=== PATIENT | male | born 1935 | race Caucasian/White ===

== ENCOUNTER → 2017-10-15 | Outpatient (CLI) | payer MEDICARE, OTHER ==
[2017-10-15 12:15] LABS: ABG BASE EXCESS 1.7 MMOL/L (-2.5-2.5); ABG OXYGEN SATURATION 91 % (94-100); ABG PCO2 40 MMHG (35-45); ABG PH 7.43 (7.37-7.43); ABG PO2 56 MMHG (79-93); ABG TCO2 27.2 MMOL/L (21.0-31.0)
[2017-10-15 12:17] LABS: ALLENS TEST POSITIVE; INSPIRED O2 3 L; PATIENT TEMP 96.6; VENTILATOR NO
== END ==
LOC: LAB 11:27
PROVIDERS: ATTEND Nurse Practitioner Family
DX: J44.9 Chronic obstructive pulmonary disease, unspecified (principal)
CPT/HCPCS: 36600; 82805

== ENCOUNTER 2017-11-12 11:16 | Inpatient (IN) | payer MEDICARE, OTHER ==
[2017-11-12] VITALS (10 sets, daily range): BP systolic 119–153; BP diastolic 65–88
[~2017-11-12] VITALS: Ht 172.7 cm; Wt 108.9 kg
[2017-11-12] MEDS ORDERED: ASPIRIN 81 MG CHEW (CHILDREN'S ASA) PO ONE (11:30)
[2017-11-12 11:45] LABS: BASOPHILS % (AUTO) 1 % (0-10); EOSINOPHILS # (AUTO) 0.3 10^3/uL (0.0-0.3); EOSINOPHILS % (AUTO) 3 % (0-10); HEMATOCRIT 50 % (40-54); HEMOGLOBIN 16.7 G/DL (13.3-17.7); LYMPHOCYTES # (AUTO) 2.5 X 10^3 (1.0-4.0); LYMPHOCYTES % (AUTO) 28 % (12-44); MEAN CORPUSCULAR HEMOGLOBIN 28 PG (25-34); MEAN CORPUSCULAR HGB CONC 33 G/DL (32-36); MEAN CORPUSCULAR VOLUME 85 FL (80-99); MEAN PLATELET VOLUME 9.1 FL (7.4-10.4); MONOCYTES # (AUTO) 0.6 X 10^3 (0.0-1.0); MONOCYTES % (AUTO) 7 % (0-12); NEUTROPHILS # (AUTO) 5.3 X 10^3 (1.8-7.8); NEUTROPHILS % (AUTO) 61 % (42-75); PLATELET COUNT 215 10^3/uL (130-400); RED BLOOD COUNT 5.92 10^6/uL (4.35-5.85); RED CELL DISTRIBUTION WIDTH 15.8 % (10.0-14.5); WHITE BLOOD COUNT 8.7 10^3/uL (4.3-11.0)
--- NOTE | 2017-11-12 11:56 | ED Chest Pain ---
General Chief Complaint: Chest Pain Stated Complaint: CP Source: patient Exam Limitations: no limitations History of Present Illness Date Seen by Provider: Nov 12, 2017 Time Seen by Provider: 11:20 Initial Comments Here with report of central chest pressure that radiates to the left shoulder and left neck. Onset about 830 this morning and has persisted. He was seen at Dr[facility] and mentioned the chest pain. 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 He is on oxygen via nasal cannula at 3 L and this is his usual dose. More short of breath currently. Denies nausea or vomiting. Sweating. Was seen at [facility] yesterday and had monitoring done in the ER for chest pain. This is become more persistent. Does have history of heart catheter at outside facility last year that showed some sort of blockage. He is unsure what that is. Reports it is on Plavix and aspirin. Has not had his dose of aspirin today. Timing/Duration: 1-3 hours Severity/Quality: moderate, pressure Location: central Radiation: neck, shoulders Activities at Onset: none Prior CP/Workup: cardiac cath, echocardiography Modifying Factors: worse with exercise; improves with oxygen, improves with rest ASA po MANAGER BUILDING: No NTG SL MANAGER BUILDING: No Associated Symptoms: No abdominal pain, No back pain, No diaphoresis, No dizziness; fatigue; No fever/chills, No nausea/vomiting; shortness of breath, weakness Allergies and Home Medications Allergies Coded Allergies: No Known Drug Allergies (Unverified , 10/23/17) Patient Home Medication List Home Medication List Reviewed: Yes Review of Systems Constitutional: see HPI EENTM: No Symptoms Reported Respiratory: No Symptoms Reported; Denies Cough; Shortness of Air, SOA With Exertion Cardiovascular: Chest Pain; Denies Edema, Denies Irregular Heart Rate Gastrointestinal: Denies Abdominal Pain, Denies Nausea, Denies Vomiting Genitourinary: No Symptoms Reported Musculoskeletal: no symptoms reported Skin: no symptoms reported Psychiatric/Neurological: No Symptoms Reported Endocrine: No Symptoms Reported All Other Systems Reviewed Negative Unless Noted: Yes Past Qcepgps-Njhkxl-Bbpsjs Hx Past Med/Social Hx: Reviewed Nursing Past Med/Soc Hx Patient Social History Alcohol Use: Denies Use Recreational Drug Use: No Smoking Status: Former Smoker Past Medical History Surgeries: Yes Appendectomy, Cardiac, CABG, Gallbladder, Vascular Surgery Respiratory: Yes Chronic Bronchitis Cardiac: Yes Atrial Fibrillation, High Cholesterol, Hypertension Neurological: No Gastrointestinal: Yes Irritable Bowel Musculoskeletal: Yes Gout Endocrine: Yes Hypothyroidsim Psychosocial: Yes Anxiety Family Medical History Reviewed Nursing Family Hx No Pertinent Family Hx Physical Exam Vital Signs Vital Signs - First Documented 11/12/17 11:16 Temp 98.1 Pulse 71 Resp 12 B/P (MAP) 7/109 (75) Pulse Ox 98 O2 Delivery Room Air O2 Flow Rate 3.0 Capillary Refill : Height, Weight, BMI Height: '" Weight: lbs. oz. kg; BMI Method: General Appearance: No Apparent Distress, WD/WN HEENT: PERRL/EOMI, Pharynx Normal Neck: Full Range of Motion, Non Tender Respiratory: Lungs Clear, Decreased Breath Sounds, Wheezing Cardiovascular: Regular Rate, Rhythm, No Murmur Gastrointestinal: Non Tender, Soft Extremity: Normal Inspection, Normal Range of Motion Neurologic/Psychiatric: Alert, Oriented x3 Skin: Normal Color, Warm/Dry Progress/Results/Core Measures Results/Orders Lab Results Laboratory Tests Test 11/12/17 11:28 Range/Units White Blood Count 8.7 4.3-11.0 10^3/uL Red Blood Count 5.92 H 4.35-5.85 10^6/uL Hemoglobin 16.7 13.3-17.7 G/DL Hematocrit 50 40-54 % Mean Corpuscular Volume 85 80-99 FL Mean Corpuscular Hemoglobin 28 25-34 PG Mean Corpuscular Hemoglobin Concent 33 32-36 G/DL Red Cell Distribution Width 15.8 H 10.0-14.5 % Platelet Count 215 130-400 10^3/uL Mean Platelet Volume 9.1 7.4-10.4 FL Neutrophils (%) (Auto) 61 42-75 % Lymphocytes (%) (Auto) 28 12-44 % Monocytes (%) (Auto) 7 0-12 % Eosinophils (%) (Auto) 3 0-10 % Basophils (%) (Auto) 1 0-10 % Neutrophils # (Auto) 5.3 1.8-7.8 X 10^3 Lymphocytes # (Auto) 2.5 1.0-4.0 X 10^3 Monocytes # (Auto) 0.6 0.0-1.0 X 10^3 Eosinophils # (Auto) 0.3 0.0-0.3 10^3/uL Basophils # (Auto) 0.0 0.0-0.1 10^3/uL Prothrombin Time 14.0 12.2-14.7 SEC INR Comment 1.1 0.8-1.4 Activated Partial Thromboplast Time 33 24-35 SEC Sodium Level 142 135-145 MMOL/L Potassium Level 4.9 3.6-5.0 MMOL/L Chloride Level 106 98-107 MMOL/L Carbon Dioxide Level 27 21-32 MMOL/L Anion Gap 9 5-14 MMOL/L Blood Urea Nitrogen 26 H 7-18 MG/DL Creatinine 1.60 H 0.60-1.30 MG/DL Estimat Glomerular Filtration Rate 42 BUN/Creatinine Ratio 16 Glucose Level 95 70-105 MG/DL Calcium Level 9.8 8.5-10.1 MG/DL Magnesium Level 2.9 H 1.8-2.4 MG/DL Total Bilirubin 0.7 0.1-1.0 MG/DL Aspartate Amino Transf (AST/SGOT) 35 H 5-34 U/L Alanine Aminotransferase (ALT/SGPT) 16 0-55 U/L Alkaline Phosphatase 69 40-136 U/L Myoglobin 30.7 10.0-92.0 NG/ML Troponin I < 0.30 <0.30 NG/ML Total Protein 8.0 6.4-8.2 GM/DL Albumin 4.0 3.2-4.5 GM/DL My Orders Orders - RUBENS MAYFIELD MD Cbc With Automated Diff (11/12/17 11:18) Magnesium (11/12/17 11:18) Chest 1 View, Ap/Pa Only (11/12/17 11:18) Ekg Tracing (11/12/17 11:18) Cardiac Profile 1 (11/12/17 11:18) Comprehensive Metabolic Panel (11/12/17 11:18) Myoglobin Serum (11/12/17 11:18) Protime With Inr (11/12/17 11:18) Partial Thromboplastin Time (11/12/17 11:18) O2 (11/12/17 11:18) Monitor-Rhythm Ecg Trace Only (11/12/17 11:18) Lipid Panel (11/13/17 06:00) Aspirin Chewable Tablet (Baby Aspirin Ch (11/12/17 11:30) Saline Lock/Iv-Start (11/12/17 11:18) Ct Chest Wo (11/12/17 12:15) Albuterol/Ipra Inhalation Soln (Duoneb I (11/12/17 12:15) Svn Small Volume Nebulizer (11/12/17 12:15) Nitroglycerin 0.4 Mg Btl 25's (Nitrostat (11/12/17 13:15) Nitroglycerin 0.4 Mg Btl 25's (Nitrostat (11/12/17 13:15) Morphine Injection (Morphine Injection (11/12/17 13:21) Medications Given in ED Current Medications Medications Dose Ordered Sig/Barron Route Start Time Stop Time Status Last Admin Dose Admin Albuterol/ Ipratropium 3 ml ONCE ONCE INH 11/12/17 12:15 11/12/17 12:16 DC 11/12/17 12:52 3 ML Aspirin 324 mg ONCE ONCE PO 11/12/17 11:30 11/12/17 11:31 DC 11/12/17 11:40 324 MG Nitroglycerin 0.4 mg UD PRN SL 11/12/17 13:15 11/12/17 13:17 0.4 MG Vital Signs/I&O 11/12/17 11/12/17 11/12/17 11/12/17 11:16 11:16 11:16 12:52 Temp 98.1 Pulse 71 Resp 12 B/P (MAP) 7/109 (75) Pulse Ox 98 96 O2 Delivery Room Air Nasal Cannula Nasal Cannula Nasal Cannula O2 Flow Rate 3.0 3.00 4.00 Progress Progress Note : Progress Note Seen and evaluated. IV, labs, EKG and chest x-ray ordered. ASA 324 mg by mouth ordered. Monitor patient. Patient still with some chest pain. 1312: I discussed the case with Dr. GÓMEZ and he accepts patient for admission, observation status. 1315: I discussed the case with Dr. Reza and he accepts patient in consult. Morphine 2 mg IV ordered after nitroglycerin. Patient and family agree with plan. Initial ECG Impression Date: Nov 12, 2017 Initial ECG Impression Time: 11:23 Initial ECG Rate: 76 Initial ECG Rhythm: Normal Sinus Initial ECG Comparisson: No Previous ECG Available Comment Sinus rhythm with first degree AV block. No evidence of ST elevation PA. No previous available for comparison. Normal axis. Interpreted by me. Diagnostic Imaging Diagonstic Imaging: CT Plain Films/CT/US/NM/MRI: chest [facility] [place], [place] NAME: MAL ALFONSO [facility] REC#: [id number] PT STATUS: REG ER : 1935 PHYSICIAN: RUBENS MAYFIELD MD ADMIT DATE: 11/12/17/ER Draft Date of Exam:11/12/17 CT CHEST WO PROCEDURE: CT chest without contrast. TECHNIQUE: Multiple contiguous axial images were obtained through the chest without the use of intravenous contrast. INDICATION: Chest pain. COMPARISON: No prior CT chest is available for comparison. Comparison is made with chest radiograph from 11/12/2017. FINDINGS: Postop changes of median sternotomy and CABG are noted. No axillary lymphadenopathy is detected. No definite hilar or mediastinal lymphadenopathy is seen. There are coronary arterial calcifications present. No pericardial or pleural fluid is detected. Left hemidiaphragm is elevated. There is resultant atelectasis in the left lower lobe. The right lung appears clear. Central airways are patent. There are centrilobular emphysematous changes noted in both lungs. Imaging through the upper abdomen does show minimal pneumobilia in the left lobe of the liver as well as centrally, which could be owing to an incompetent sphincter. No other abnormality is seen. IMPRESSION: 1. Elevated left hemidiaphragm with left basilar atelectasis. 2. Centrilobular emphysematous changes. No other significant abnormality in the chest is seen. 3. Pneumobilia, perhaps owing to incompetent sphincter. Dictated on workstation # [id number] Dict: 11/12/17 1243 Trans: 11/12/17 1252 [id number] Interpreted by: LEILANI MARTELL MD Electronically signed by: Diagonstic Imaging: Xray Plain Films/CT/US/NM/MRI: chest [facility] [place] [place] NAME: MAL ALFONSO [facility] REC#: [id number] PT STATUS: REG ER : 1935 PHYSICIAN: RUBENS MAYFIELD MD ADMIT DATE: 11/12/17/ER Draft Date of Exam:11/12/17 CHEST 1 VIEW, AP/PA ONLY INDICATION: Chest pains. COMPARISON: None FINDINGS: Upright portable view of the chest is obtained. Heart size appears to be enlarged. There is no central venous congestion. There is no pneumothorax. There is however, opacification of the lower half of the left hemithorax likely due to combination of pleural fluid and/or airspace disease. The right lung appears fairly clear. There are postoperative changes in the mediastinum and left hilum. IMPRESSION: There is opacification of the lower half of the left hemithorax likely due to combination of pleural effusion and airspace disease. Underlying etiology is uncertain and could be related to pneumonia, although neoplastic process is not excluded. Dictated on workstation # [id number] Dict: 11/12/17 1203 Trans: 11/12/17 1207 [id number] Interpreted by: BENJI WELCH DO Electronically signed by: Departure Communication (Admissions) Time/Spoke to Admitting Phy: 13:12 Time/Spoke to Consulting Phy: 13:15 Impression Primary Impression: Chest pain Qualified Codes: R07.9 - Chest pain, unspecified Disposition: ADMITTED INPATIENT Condition: Stable Admissions Decision to Admit Reason: Admit from ER (General) Decision to Admit/Date: Nov 12, 2017 Time/Decision to Admit Time: 13:12 Departure-Patient Inst. Referrals: NO,LOCAL PHYSICIAN (PCP/Family) Primary Care Physician RUBENS MAYFIELD MD Nov 12, 2017 11:56
[2017-11-12 11:58] LABS: INR 1.1 (0.8-1.4)
[2017-11-12 12:05] LABS: ALANINE AMINOTRANSFERASE 16 U/L (0-55); ALKALINE PHOSPHATASE 69 U/L (40-136); BILIRUBIN,TOTAL 0.7 MG/DL (0.1-1.0); BUN/CREATININE RATIO 16; CALCIUM 9.8 MG/DL (8.5-10.1); CARBON DIOXIDE 27 MMOL/L (21-32); CHLORIDE 106 MMOL/L (98-107); GFR ESTIMATED 42; GLUCOSE 95 MG/DL (70-105); MAGNESIUM 2.9 MG/DL (1.8-2.4); POTASSIUM 4.9 MMOL/L (3.6-5.0); SODIUM 142 MMOL/L (135-145)
--- NOTE | 2017-11-12 12:08 | Diagnostic Imaging Report ---
INDICATION: Chest pains. COMPARISON: None FINDINGS: Upright portable view of the chest is obtained. Heart size appears to be enlarged. There is no central venous congestion. There is no pneumothorax. There is however, opacification of the lower half of the left hemithorax likely due to combination of pleural fluid and/or airspace disease. The right lung appears fairly clear. There are postoperative changes in the mediastinum and left hilum. IMPRESSION: There is opacification of the lower half of the left hemithorax likely due to combination of pleural effusion and airspace disease. Underlying etiology is uncertain and could be related to pneumonia, although neoplastic process is not excluded. Dictated by: Dictated on workstation # [id number]
[2017-11-12 12:11] LABS: MYOGLOBIN SERUM 30.7 NG/ML (10.0-92.0)
[2017-11-12] MEDS ORDERED: RT-ALBUTEROL/IPRATROPIUM 3 ML (DUONEB) VIAL INH ONE (12:15)
--- NOTE | 2017-11-12 12:52 | Diagnostic Imaging Report ---
PROCEDURE: CT chest without contrast. TECHNIQUE: Multiple contiguous axial images were obtained through the chest without the use of intravenous contrast. INDICATION: Chest pain. COMPARISON: No prior CT chest is available for comparison. Comparison is made with chest radiograph from 11/12/2017. FINDINGS: Postop changes of median sternotomy and CABG are noted. No axillary lymphadenopathy is detected. No definite hilar or mediastinal lymphadenopathy is seen. There are coronary arterial calcifications present. No pericardial or pleural fluid is detected. Left hemidiaphragm is elevated. There is resultant atelectasis in the left lower lobe. The right lung appears clear. Central airways are patent. There are centrilobular emphysematous changes noted in both lungs. Imaging through the upper abdomen does show minimal pneumobilia in the left lobe of the liver as well as centrally, which could be owing to an incompetent sphincter. No other abnormality is seen. IMPRESSION: 1. Elevated left hemidiaphragm with left basilar atelectasis. 2. Centrilobular emphysematous changes. No other significant abnormality in the chest is seen. 3. Pneumobilia, perhaps owing to incompetent sphincter. Dictated by: Dictated on workstation # [id number]
[2017-11-12] MEDS ORDERED: NITROGLYCERIN 0.4 MG SL TABS BTL 25'S SL ONE (13:15)
[2017-11-12] MEDS ORDERED: LIDOCAINE JELLY 2% (XYLOCAINE) 30 ML TUBE TOP ONE (13:16)
[2017-11-12] MEDS ORDERED: LIDOCAINE 4% INJ (XYLOCAINE) 5ML AMP INJ ONE (13:16)
[2017-11-12] MEDS ORDERED: LIDOCAINE PF 1% 2 ML AMP INJ ONE (13:16)
[2017-11-12] MEDS: NITROGLYCERIN 0.4 MG SL TABS BTL 25'S SL PRN ×2 (13:17→13:45)
[2017-11-12] MEDS ORDERED: morphine INJ 10 MG/ML 1ML (SYR OR VIAL) IVP STA (13:21)
[2017-11-12] MEDS ORDERED: ISM60TCR PO (13:52)
[2017-11-12] MEDS ORDERED: FURO40TA4 PO (13:52)
[2017-11-12] MEDS ORDERED: POTA-51 PO ×2 (13:52)
[2017-11-12] MEDS ORDERED: MULT-35 PO (13:52)
[2017-11-12] MEDS ORDERED: FLUT1BLS3 IH (13:52)
[2017-11-12] MEDS ORDERED: LEVO100T7 PO (13:52)
[2017-11-12] MEDS ORDERED: NITR0.4T39 SL (13:52)
[2017-11-12] MEDS ORDERED: PANT40TA2 PO (13:52)
[2017-11-12] MEDS ORDERED: ALPR0.5T7 PO (13:52)
[2017-11-12] MEDS ORDERED: CITA40TA19 PO (13:52)
[2017-11-12] MEDS ORDERED: CLOP75TA69 PO (13:52)
[2017-11-12] MEDS ORDERED: OMG1KC PO (13:52)
[2017-11-12] MEDS ORDERED: ATOR40TA70 PO (13:52)
[2017-11-12] MEDS ORDERED: ALLO300T2 PO (13:52)
[2017-11-12] MEDS ORDERED: UMEC62.5 IH (14:10)
[2017-11-12] MEDS ORDERED: RT-ALBUINH IH (14:10)
--- NOTE | 2017-11-12 14:24 | Consultation-Cardiology ---
HPI-Cardiology Cardiology Consultation: Date of Consultation 11/12/17 Time Seen by Provider: 14:40 Date of Admission 11-12-17 Attending Physician Jassi Marion MD Admitting Physician No,Local Physician Consulting Physician Maicol Reza MD HPI: Chief Complaint: Chest pain Mr. Alfonso is an 82 year old male admitted to room 408 from the ED. His primary resident care coordinator is Dr. Mccollum at [facility]. He reports left sided chest pain which radiates up his chest to his right shoulder and neck. He states it is constant. He states he took nitro sublingual at home yesterday and it did not provide any relief. He states he went to the ED in [place], [place] yesterday and was evaluated. He reports they sent him home and found no cardiac cause. He states he was seen in Dr. Harris's clinic earlier today for a routine appt. He reported his chest pain to them and they directed him to the ED. He denies any aggravating or alleviating symptoms. He states he did receive "a pain shot" in the ED and that has provided some relief, but the discomfort is still present. It does not change in respect to movement or deep breathing. He does report he has had some increasing SOB over the last few weeks. He is oxygen dependant. He denies any LE edema. He reports chronic lightheadedness which is unchanged. He denies any syncope or near syncope. Review of Systems-Cardiology Review of Systems Constitutional: No chills, No fever; lightheadedness (chronic) Eyes: No vision change Ears/Nose/Throat: No epistaxis, No recent hearing loss Respiratory: As described under HPI Cardiovascular: As described under HPI Gastrointestinal: No constipation; diarrhea (chronic); No nausea, No vomiting Genitourinary: No dysuria, No hematuria Musculoskeletal: As describe under HPI Skin: No rash, No ulcerations Psychiatric/Neurological: No seizure, No focal weakness, No syncope Hematologic: No bleeding abnormalities All Other Systems Reviewed Negative Unless Noted: Yes VFT-Ktouni-Ypsdfl Hx Patient Social History Alcohol Use: Denies Use Recreational Drug Use: No Smoking Status: Former Smoker Recent Foreign Travel: No Recent Infectious Disease Expo: No Hospitalization with Isolation: Denies Past Medical History PMH As described under Assessment. Family Medical History Family Medical History: He reports his mother had CAD and AAA. He reports he has sisters x2 which have both had AAA. He reports a brother who had lung cancer. Allergies and Home Medications Allergies Coded Allergies: No Known Drug Allergies (Unverified , 10/23/17) Home Medications Albuterol Sulfate 1 Puff Puff, 2 PUFF IH QID PRN for SHORTNESS OF BREATH, ( Reported) 1 PUFF = 90 MCG Allopurinol 300 Mg Tablet, 300 MG PO DAILY, (Reported) Alprazolam 0.5 Mg Tablet, 0.5 MG PO TID, (Reported) Atorvastatin Calcium 40 Mg Tablet, 40 MG PO HS, (Reported) Citalopram Hydrobromide 40 Mg Tablet, 40 MG PO DAILY, (Reported) Clopidogrel Bisulfate 75 Mg Tablet, 75 MG PO DAILY, (Reported) Furosemide 20 Mg Tablet, 40 MG PO DAILY, (Reported) TAKES 2 (20MG) TABLETS Isosorbide Mononitrate 60 Mg Tab, 60 MG PO DAILY, (Reported) Levothyroxine Sodium 100 Mcg Tablet, 100 MCG PO DAILY, (Reported) Multivitamin 1 Each Tablet, 1 TAB PO DAILY, (Reported) Nitroglycerin 0.4 Mg Tab.subl, 0.4 MG SL UD PRN for CHEST PAIN, (Reported) [place] 3 Polyunsat Fatty Acids 1,000 Mg Cap, 2,000 MG PO DAILY, (Reported) TAKES 2 (1000MG) CAPSULES Pantoprazole Sodium 40 Mg Tablet.dr, 40 MG PO DAILY, (Reported) Potassium Chloride 20 Meq Tablet.er, 40 MEQ PO DAILY, (Reported) TAKES 2 (20MEQ) TABLETS Potassium Chloride 20 Meq Tablet.er, 20 MEQ PO 1200, (Reported) Umeclidinium [place] 62.5 Mcg Blst.w.dev, 1 PUFF IH DAILY, (Reported) Patient Home Medication List Home Medication List Reviewed: Yes Physical Exam-Cardiology Physical Exam Vital Signs/I&O 11/13/17 11/13/17 11/13/17 11/13/17 00:36 01:00 02:05 04:00 Temp 96.3 96.4 Pulse 63 62 70 Resp 20 16 B/P (MAP) 129/69 (89) 139/75 (96) Pulse Ox 93 94 92 O2 Delivery Nasal Cannula Nasal Cannula Nasal Cannula O2 Flow Rate 3.00 3.00 3.00 11/13/17 11/13/17 11/13/17 11/13/17 05:57 06:02 06:05 06:18 Pulse 74 76 79 73 Resp 26 24 20 20 B/P (MAP) 172/92 (118) 169/93 (118) 164/92 (116) 140/84 (102) Pulse Ox 95 95 94 94 O2 Delivery Nasal Cannula Nasal Cannula Nasal Cannula Nasal Cannula O2 Flow Rate 3.00 3.00 3.00 3.00 11/13/17 11/13/17 11/13/17 11/13/17 06:20 06:41 07:00 08:36 Temp 97.6 Pulse 72 73 79 Resp 20 20 B/P (MAP) 144/86 (105) 129/71 (90) Pulse Ox 94 93 100 O2 Delivery Nasal Cannula Nasal Cannula Nasal Cannula O2 Flow Rate 3.00 3.50 3.00 11/13/17 00:00 Intake Total 780 ml Balance 780 ml Capillary Refill : Less Than 3 Seconds Constitutional: AAO x 3, well-developed, well-nourished HEENT: PERRL, hearing is well preserved, oral hygience is good Neck: No carotid bruit; carotid pulses are 2 + bilaterally Respiratory: No accessory muscle use, No respiratory distress; other ( prolonged exp phase; diminished throughout) Cardiovascular: regular rate-rhythm; No JVD; S1 and S2, systolic murmur Gastrointestinal: No tender; soft, round, audible bowel sounds Rectal: deferred Extremities: no lower extremity edema bilateral Neurologic/Psychiatric: grossly intact, power is 5/5 both on sides Skin: No rash, No ulcerations Data Review Labs Laboratory Tests 11/12/17 11:28: White Blood Count 8.7, Red Blood Count 5.92H, Hemoglobin 16.7, Hematocrit 50, Mean Corpuscular Volume 85, Mean Corpuscular Hemoglobin 28, Mean Corpuscular Hemoglobin Concent 33, Red Cell Distribution Width 15.8H, Platelet Count 215, Mean Platelet Volume 9.1, Neutrophils (%) (Auto) 61, Lymphocytes (%) (Auto) 28, Monocytes (%) (Auto) 7, Eosinophils (%) (Auto) 3, Basophils (%) (Auto) 1, Neutrophils # (Auto) 5.3, Lymphocytes # (Auto) 2.5, Monocytes # (Auto) 0.6, Eosinophils # (Auto) 0.3, Basophils # (Auto) 0.0, Prothrombin Time 14.0, INR Comment 1.1, Activated Partial Thromboplast Time 33, Sodium Level 142, Potassium Level 4.9, Chloride Level 106, Carbon Dioxide Level 27, Anion Gap 9, Blood Urea Nitrogen 26H, Creatinine 1.60H, Estimat Glomerular Filtration Rate 42 , BUN/Creatinine Ratio 16, Glucose Level 95, Calcium Level 9.8, Magnesium Level 2.9H, Total Bilirubin 0.7, Aspartate Amino Transf (AST/SGOT) 35H, Alanine Aminotransferase (ALT/SGPT) 16, Alkaline Phosphatase 69, Myoglobin 30.7, Troponin I < 0.30, Total Protein 8.0, Albumin 4.0 11/12/17 17:30: Troponin I < 0.30 11/13/17 05:40: White Blood Count 7.0, Red Blood Count 5.24, Hemoglobin 14.9, Hematocrit 45, Mean Corpuscular Volume 86, Mean Corpuscular Hemoglobin 28, Mean Corpuscular Hemoglobin Concent 33, Red Cell Distribution Width 15.4H, Platelet Count 168, Mean Platelet Volume 9.3, Neutrophils (%) (Auto) 65, Lymphocytes (%) (Auto) 24, Monocytes (%) (Auto) 8, Eosinophils (%) (Auto) 3, Basophils (%) (Auto) 0, Neutrophils # (Auto) 4.6, Lymphocytes # (Auto) 1.7, Monocytes # (Auto) 0.5, Eosinophils # (Auto) 0.2, Basophils # (Auto) 0.0, Sodium Level 143, Potassium Level 3.9, Chloride Level 107, Carbon Dioxide Level 29, Anion Gap 7, Blood Urea Nitrogen 27H, Creatinine 1.33H, Estimat Glomerular Filtration Rate 52, BUN/ Creatinine Ratio 20, Glucose Level 94, Calcium Level 9.0, Total Bilirubin 0.7, Aspartate Amino Transf (AST/SGOT) 19, Alanine Aminotransferase (ALT/SGPT) 11, Alkaline Phosphatase 62, Total Protein 6.3L, Albumin 3.4, Triglycerides Level 169H, Cholesterol Level 154, LDL Cholesterol Direct 109, VLDL Cholesterol 34, HDL Cholesterol 29L 11/13/17 06:47: Troponin I < 0.30 Radiology NAME: MAL ALFONSO [facility] REC#: [id number] PT STATUS: REG ER : 1935 PHYSICIAN: RUBENS MAYFIELD MD ADMIT DATE: 11/12/17/ER Draft Date of Exam:11/12/17 CT CHEST WO PROCEDURE: CT chest without contrast. TECHNIQUE: Multiple contiguous axial images were obtained through the chest without the use of intravenous contrast. INDICATION: Chest pain. COMPARISON: No prior CT chest is available for comparison. Comparison is made with chest radiograph from 11/12/2017. FINDINGS: Postop changes of median sternotomy and CABG are noted. No axillary lymphadenopathy is detected. No definite hilar or mediastinal lymphadenopathy is seen. There are coronary arterial calcifications present. No pericardial or pleural fluid is detected. Left hemidiaphragm is elevated. There is resultant atelectasis in the left lower lobe. The right lung appears clear. Central airways are patent. There are centrilobular emphysematous changes noted in both lungs. Imaging through the upper abdomen does show minimal pneumobilia in the left lobe of the liver as well as centrally, which could be owing to an incompetent sphincter. No other abnormality is seen. IMPRESSION: 1. Elevated left hemidiaphragm with left basilar atelectasis. 2. Centrilobular emphysematous changes. No other significant abnormality in the chest is seen. 3. Pneumobilia, perhaps owing to incompetent sphincter. Dictated on workstation # [id number] Dict: 11/12/17 1243 Trans: 11/12/17 1252 [id number] Interpreted by: LEILANI MARTELL MD Electronically signed by: NAME: MAL ALFONSO [facility] REC#: [id number] PT STATUS: REG ER : 1935 PHYSICIAN: RUBENS MAYFIELD MD ADMIT DATE: 11/12/17/ER Draft Date of Exam:11/12/17 CHEST 1 VIEW, AP/PA ONLY INDICATION: Chest pains. COMPARISON: None FINDINGS: Upright portable view of the chest is obtained. Heart size appears to be enlarged. There is no central venous congestion. There is no pneumothorax. There is however, opacification of the lower half of the left hemithorax likely due to combination of pleural fluid and/or airspace disease. The right lung appears fairly clear. There are postoperative changes in the mediastinum and left hilum. IMPRESSION: There is opacification of the lower half of the left hemithorax likely due to combination of pleural effusion and airspace disease. Underlying etiology is uncertain and could be related to pneumonia, although neoplastic process is not excluded. Dictated on workstation # [id number] Dict: 11/12/17 1203 Trans: 11/12/17 1207 [id number] Interpreted by: BENJI WELCH DO Electronically signed by: ECG Impression ECG Initial ECG Rhythm: Normal Sinus A/P-Cardiology Assessment/Admission Diagnosis Chest pain of undetermined etiology - no evidence of ACS thus far CAD - h/o CABG x 3 [place] [address] Salazar at [facility] in [place], [place]. Stents x 4 since CABG, most recent stenting [place] [address] Mccollum. Most recent cardiac cath in Feb 2017 at [facility] with no intervention. AAA repair with stenting in 1999 and "CABG graft repair" by Dr. Browning at [facility] H/O ICM - most recent echo at [facility] approx [address] Mccollum Reports h/o a-fib in the past for which he reports he was on warfarin tx in the past, but reports it was stopped for reasons unknown HTN HLP - statin tx Hypothyroidism - replacement tx GERD COPD - following with Dr. Harris of pulmonary services JEFF - intolerant to CPAP tx Oxygen dependant d/t hypoxemia - followed by Dr. Harris H/O tobaccoism - quit in 1980 Diverticulitis with chronic diarrhea Anxiety H/O cholecystectomy Discussion and Recomendations Chest pain of undetermined etiology - no evidence of ACS thus far H/O CAD with CABG for which his primary resident care coordinator is Dr. Mccollum at [facility] - reports most recent cardiac cath was Feb 2017 and echo was August 2017 - we will request records COPD - management per medical services Continue home medication regimen Monitor lab closely We would like to thank medical services for this consult Further recs will be based on his hospital course Clinical Quality Measures AMI/AHF: ASA po Prior to arrival: LEXII Ybarra Nov 12, 2017 14:23
[2017-11-12] MEDS ORDERED: FURO20TA4 PO (14:58)
[2017-11-12] MEDS ORDERED: NITROGLYCERIN 0.4 MG SL TABS BTL 25'S SL PRN (15:00)
[2017-11-12] MEDS ORDERED: CATHETER FLUSH 10 ML SYR IV PRN (15:00)
[2017-11-12] MEDS ORDERED: NS IV 1000 ML 1,000 ML IV SCH (15:00)
[2017-11-12] MEDS ORDERED: RT-ALBUTEROL/IPRATROPIUM 3 ML (DUONEB) VIAL INH PRN (17:15)
--- NOTE | 2017-11-12 17:19 | Consultation-Cardiology ---
HPI-Cardiology Cardiology Consultation: Date of Consultation 11/12/17 Time Seen by Provider: 16:40 Date of Admission Attending Physician Jassi Marion MD Admitting Physician No,Local Physician Consulting Physician LUPE HORNE MD, MA, FACP, FACC, FSCAI, CCDS Primary rate engineer: Dr Pritchett ([place], [place]) HPI: Chief Complaint: Chest pain HPI: Mr. Do is an 82 year old male admitted to room 408 from the ED. His primary rate engineer is Dr. Mccollum at [facility]. He reports left sided chest pain which radiates up his chest to his right shoulder and neck. He states it is constant. He states he took nitro sublingual at home yesterday and it did not provide any relief. He states he went to the ED in [place], [place] yesterday and was evaluated. He reports they sent him home and found no cardiac cause. He states he was seen in Dr. Harris's clinic earlier today for a routine appt. He reported his chest pain to them and they directed him to the ED. He denies any aggravating or alleviating symptoms. He states he did receive "a pain shot" in the ED and that has provided some relief, but the discomfort is still present. It does not change in respect to movement or deep breathing. He does report he has had some increasing SOB over the last few weeks. He is oxygen dependant. He denies any LE edema. He reports chronic lightheadedness which is unchanged. He denies any syncope or near syncope. Review of Systems-Cardiology Review of Systems Constitutional: No chills, No fever; lightheadedness (chronic) Eyes: No vision change Ears/Nose/Throat: No epistaxis, No recent hearing loss Respiratory: As described under HPI Cardiovascular: As described under HPI Gastrointestinal: No constipation; diarrhea (chronic); No nausea, No vomiting Genitourinary: No dysuria, No hematuria Musculoskeletal: As describe under HPI Skin: No rash, No ulcerations Psychiatric/Neurological: No seizure, No focal weakness, No syncope Hematologic: No bleeding abnormalities All Other Systems Reviewed Negative Unless Noted: Yes TXR-Iqpwge-Vtmvak Hx Patient Social History Alcohol Use: Denies Use Recreational Drug Use: No Smoking Status: Former Smoker Type Used: Cigarettes Recent Foreign Travel: No Recent Infectious Disease Expo: No Hospitalization with Isolation: Denies Physical Abuse Screen: No Sexual Abuse: No Immunizations Up To Date Date of Pneumonia Vaccine: Nov 13, 2015 Past Medical History PMH As described under Assessment. Family Medical History Family Medical History: He reports his mother had CAD and AAA. He reports he has sisters x2 which have both had AAA. He reports a brother who had lung cancer. Allergies and Home Medications Allergies Coded Allergies: No Known Drug Allergies (Unverified , 10/23/17) Home Medications Albuterol Sulfate 1 Puff Puff, 2 PUFF IH QID PRN for SHORTNESS OF BREATH, ( Reported) 1 PUFF = 90 MCG Allopurinol 300 Mg Tablet, 300 MG PO DAILY, (Reported) Alprazolam 0.5 Mg Tablet, 0.5 MG PO TID, (Reported) Atorvastatin Calcium 40 Mg Tablet, 40 MG PO HS, (Reported) Citalopram Hydrobromide 40 Mg Tablet, 40 MG PO DAILY, (Reported) Clopidogrel Bisulfate 75 Mg Tablet, 75 MG PO DAILY, (Reported) Furosemide 20 Mg Tablet, 40 MG PO DAILY, (Reported) TAKES 2 (20MG) TABLETS Isosorbide Mononitrate 60 Mg Tab, 60 MG PO DAILY, (Reported) Levothyroxine Sodium 100 Mcg Tablet, 100 MCG PO DAILY, (Reported) Multivitamin 1 Each Tablet, 1 TAB PO DAILY, (Reported) Nitroglycerin 0.4 Mg Tab.subl, 0.4 MG SL UD PRN for CHEST PAIN, (Reported) [place] 3 Polyunsat Fatty Acids 1,000 Mg Cap, 2,000 MG PO DAILY, (Reported) TAKES 2 (1000MG) CAPSULES Pantoprazole Sodium 40 Mg Tablet.dr, 40 MG PO DAILY, (Reported) Potassium Chloride 20 Meq Tablet.er, 40 MEQ PO DAILY, (Reported) TAKES 2 (20MEQ) TABLETS Potassium Chloride 20 Meq Tablet.er, 20 MEQ PO 1200, (Reported) Umeclidinium [place] 62.5 Mcg Blst.w.dev, 1 PUFF IH DAILY, (Reported) Patient Home Medication List Home Medication List Reviewed: Yes Physical Exam-Cardiology Physical Exam Vital Signs/I&O 11/12/17 11/12/17 11/12/17 11/12/17 11:16 11:16 11:16 12:52 Temp 98.1 Pulse 71 Resp 12 B/P (MAP) 7/109 (75) Pulse Ox 98 96 O2 Delivery Room Air Nasal Cannula Nasal Cannula Nasal Cannula O2 Flow Rate 3.0 3.00 4.00 11/12/17 11/12/17 11/12/17 11/12/17 14:10 15:04 15:19 15:19 Temp 96.5 Pulse 84 76 81 77 Resp 16 B/P (MAP) 132/90 151/83 (105) 146/88 (107) Pulse Ox 94 93 93 O2 Delivery Nasal Cannula O2 Flow Rate 3.00 11/12/17 11/12/17 11/12/17 11/12/17 15:34 15:49 16:04 16:20 Pulse 75 76 73 70 B/P (MAP) 153/88 (109) 135/82 (99) 133/75 (94) 119/74 (89) Pulse Ox 93 96 96 92 O2 Delivery Room Air 11/12/17 11/12/17 16:35 16:35 Pulse 72 Pulse Ox 92 92 O2 Delivery Nasal Cannula O2 Flow Rate 3.00 Capillary Refill : Less Than 3 Seconds Constitutional: AAO x 3, well-developed, well-nourished HEENT: PERRL, hearing is well preserved, oral hygience is good Neck: No carotid bruit; carotid pulses are 2 + bilaterally Respiratory: No accessory muscle use, No respiratory distress; other ( prolonged exp phase; diminished throughout) Cardiovascular: regular rate-rhythm; No JVD; S1 and S2, systolic murmur Gastrointestinal: No tender; soft, round, audible bowel sounds Rectal: deferred Extremities: no lower extremity edema bilateral Neurologic/Psychiatric: grossly intact, power is 5/5 both on sides Skin: No rash, No ulcerations Data Review Labs Laboratory Tests 11/12/17 11:28: White Blood Count 8.7, Red Blood Count 5.92H, Hemoglobin 16.7, Hematocrit 50, Mean Corpuscular Volume 85, Mean Corpuscular Hemoglobin 28, Mean Corpuscular Hemoglobin Concent 33, Red Cell Distribution Width 15.8H, Platelet Count 215, Mean Platelet Volume 9.1, Neutrophils (%) (Auto) 61, Lymphocytes (%) (Auto) 28, Monocytes (%) (Auto) 7, Eosinophils (%) (Auto) 3, Basophils (%) (Auto) 1, Neutrophils # (Auto) 5.3, Lymphocytes # (Auto) 2.5, Monocytes # (Auto) 0.6, Eosinophils # (Auto) 0.3, Basophils # (Auto) 0.0, Prothrombin Time 14.0, INR Comment 1.1, Activated Partial Thromboplast Time 33, Sodium Level 142, Potassium Level 4.9, Chloride Level 106, Carbon Dioxide Level 27, Anion Gap 9, Blood Urea Nitrogen 26H, Creatinine 1.60H, Estimat Glomerular Filtration Rate 42 , BUN/Creatinine Ratio 16, Glucose Level 95, Calcium Level 9.8, Magnesium Level 2.9H, Total Bilirubin 0.7, Aspartate Amino Transf (AST/SGOT) 35H, Alanine Aminotransferase (ALT/SGPT) 16, Alkaline Phosphatase 69, Myoglobin 30.7, Troponin I < 0.30, Total Protein 8.0, Albumin 4.0 Laboratory Tests 11/12/17 11:28 A/P-Cardiology Assessment/Admission Diagnosis Chest pain of undetermined etiology - no evidence of ACS thus far CAD - h/o CABG x 3 [place] [address] Salazar at [facility] in [place], [place]. Stents x 4 since CABG, most recent stenting [place] [address] Mccollum. Most recent cardiac cath in Feb 2017 at [facility] with no intervention. AAA repair with stenting in 1999 and "CABG graft repair" by Dr. Browning at [facility] H/O ICM - most recent echo at [facility] approx [address] Mccollum Reports h/o a-fib in the past for which he reports he was on warfarin tx in the past, but reports it was stopped for reasons unknown HTN HLP - statin tx Hypothyroidism - replacement tx GERD COPD - following with Dr. Harris of pulmonary services [facility] - intolerant to CPAP tx Oxygen dependent d/t hypoxemia - followed by Dr. Harris H/o tobaccoism - quit in 1980 Diverticulitis with chronic diarrhea Anxiety H/o cholecystectomy Discussion and Recomendations Chest pain of undetermined etiology - no evidence of ACS thus far H/O CAD with CABG for which his primary rate engineer is Dr. Mccollum at [facility] - reports most recent cardiac cath was Feb 2017 and echo was August 2017 - we will request records Continue home medication regimen Monitor lab closely We would like to thank the Medical Svce for this consult Further recs will be based on his hospital course I had a detailed discussion with him and his regarding his CV issues and answered questions Clinical Quality Measures AMI/AHF: ASA po Prior to arrival: No DVT/VTE Risk/Contraindication: Risk Factor Score Per Nursin RFS Level Per Nursing on Admit: 4+=Very High LUPE HORNE MD FACP FACC CCDS Nov 12, 2017 17:19
--- NOTE | 2017-11-12 17:33 | History & Physical-Hospitalist ---
History of Present Illness HPI/Chief Complaint The patient is an 82-year-old white male from [facility]. He came to [place] this morning to see Dr. Harris on a scheduled pulmonary visit. He revealed that he had been to the hospital in [place] last evening with left chest pain radiating to his jaw. He apparently was kept in the emergency room for several hours and did not show any troponin evidence of injury and therefore was sent home. He reports that the pain continued throughout the night and this morning. He has a past history of coronary artery disease and had three-vessel bypass in [place] in the early 1980s. More recently he had stent placement. He normally sees Dr. PEARL at [place]. He states that earlier this year he had an echocardiogram which showed an ejection fraction of about 20 percent. He uses O2 at 3 L/m continuously. Date Seen 11/12/17 Time Seen by Provider: 17:28 Attending Physician Jassi Gómez MD PCP No,Local Physician Referring Physician Date of Admission Nov 12, 2017 at 13:15 Home Medications & Allergies Home Medications Reviewed patient Home Medication Reconciliation performed by pharmacy medication reconciliations geological technician and/or nursing. Patients Allergies have been reviewed. Allergies Allergies Coded Allergies No Known Drug Allergies (Unverified10/23/17) Past Tlebgod-Wclazs-Nlinzd Hx Past Med/Social Hx: Reviewed Nursing Past Med/Soc Hx Patient Social History Alcohol Use: Denies Use Recreational Drug Use: No Smoking Status: Former Smoker Former Smoker, Quit: Nov 12, 1980 Type Used: Cigarettes Physical Abuse Screen: No Sexual Abuse: No Recent Foreign Travel: No Contact w/other who traveled: No Recent Infectious Disease Expo: No Immunizations Up To Date Date of Pneumonia Vaccine: Nov 13, 2015 Seasonal Allergies Seasonal Allergies: No Past Medical History Surgeries: Appendectomy, Cardiac, CABG, Gallbladder, Vascular Surgery Currently Using CPAP: No Cardiac: Atrial Fibrillation, High Cholesterol, Hypertension Gastrointestinal: Chronic Diarrhea, Irritable Bowel Musculoskeletal: Gout Endocrine: Hypothyroidsim Psychosocial: Anxiety Family History Reviewed Nursing Family Hx No Pertinent Family Hx Review of Systems Constitutional: see HPI EENTM: no symptoms reported Respiratory: dyspnea on exertion, short of breath, wheezing Cardiovascular: see HPI, Hx of Intervention Gastrointestinal: no symptoms reported Musculoskeletal: no symptoms reported Skin: no symptoms reported Psychiatric/Neurological: No Symptoms Reported Physical Exam Physical Exam Vital Signs Capillary Refill : Less Than 3 Seconds Height, Weight, BMI Height: 5'8.00" Weight: 240lbs. 1.0oz. 108.935506zp; 36.5 BMI Method:Stated General Appearance: No Apparent Distress, WD/WN Eyes: Bilateral Eye Normal Inspection HEENT: Normal ENT Inspection Neck: Full Range of Motion Respiratory: Decreased Breath Sounds Cardiovascular: Regular Rate, Rhythm, No Edema, No Gallop, No JVD, No Murmur, Normal Peripheral Pulses Gastrointestinal: Normal Bowel Sounds, No Organomegaly, No Pulsatile Mass, Non Tender, Soft Back: Normal Inspection Extremity: Normal Capillary Refill, No Pedal Edema Neurologic/Psychiatric: Alert, Oriented x3, No Motor/Sensory Deficits, Normal Mood/Affect Skin: Normal Color, Warm/Dry Lymphatic: No Adenopathy Results Results/Procedures Labs Patient resulted labs reviewed. Assessment/Plan Admission Diagnosis Chest pain with stable angina. 2.acute exacerbation COPD. 3.Parkinson's disease. 4.congestive heart failure. 5.obesity. Admission Status: Inpatient Order (span 2 midnights) Reason for Inpatient Admission: Multi system disease in elderly patient Clinical Quality Measures AMI/AHF: ASA po Prior to arrival: No DVT/VTE Risk/Contraindication: Risk Factor Score Per Nursin RFS Level Per Nursing on Admit: 4+=Very High JASSI GÓMEZ MD Nov 12, 2017 17:33
[2017-11-12] MEDS: ATORVASTATIN 40 MG (LIPITOR) TABLET PO SCH (20:25)
[2017-11-12] MEDS: ALPRAZolam 0.5 MG (XANAX) TAB PO SCH (20:25)
[2017-11-12] MEDS: RT-ALBUTEROL/IPRATROPIUM 3 ML (DUONEB) VIAL INH SCH ×2 (20:40→20:46)
[2017-11-13] VITALS (18 sets, daily range): BP systolic 108–172; BP diastolic 63–93
[2017-11-13] MEDS: RT-ALBUTEROL/IPRATROPIUM 3 ML (DUONEB) VIAL INH SCH ×6 (02:05→21:01)
[2017-11-13] MEDS: KCL 20 MEQ TAB (K-DUR) PO SCH (05:46)
[2017-11-13] MEDS: MULTIVIT W/MINERALS TAB (THERAGRAN M) PO SCH (05:46)
[2017-11-13] MEDS: morphine INJ 4 MG/ML 1 ML (VIAL/SYRINGE) IV PRN ×2 (06:00→07:31)
[2017-11-13 06:05] LABS: BASOPHILS % (AUTO) 0 % (0-10); EOSINOPHILS # (AUTO) 0.2 10^3/uL (0.0-0.3); EOSINOPHILS % (AUTO) 3 % (0-10); HEMATOCRIT 45 % (40-54); HEMOGLOBIN 14.9 G/DL (13.3-17.7); LYMPHOCYTES # (AUTO) 1.7 X 10^3 (1.0-4.0); LYMPHOCYTES % (AUTO) 24 % (12-44); MEAN CORPUSCULAR HEMOGLOBIN 28 PG (25-34); MEAN CORPUSCULAR HGB CONC 33 G/DL (32-36); MEAN CORPUSCULAR VOLUME 86 FL (80-99); MEAN PLATELET VOLUME 9.3 FL (7.4-10.4); MONOCYTES # (AUTO) 0.5 X 10^3 (0.0-1.0); MONOCYTES % (AUTO) 8 % (0-12); NEUTROPHILS # (AUTO) 4.6 X 10^3 (1.8-7.8); NEUTROPHILS % (AUTO) 65 % (42-75); PLATELET COUNT 168 10^3/uL (130-400); RED BLOOD COUNT 5.24 10^6/uL (4.35-5.85); RED CELL DISTRIBUTION WIDTH 15.4 % (10.0-14.5)
[2017-11-13] MEDS: NITROGLYCERIN 0.4 MG SL TABS BTL 25'S SL PRN ×2 (06:05→06:18)
[2017-11-13 06:27] LABS: ALBUMIN 3.4 GM/DL (3.2-4.5); BILIRUBIN,TOTAL 0.7 MG/DL (0.1-1.0); CREATININE SERUM 1.33 MG/DL (0.60-1.30); POTASSIUM 3.9 MMOL/L (3.6-5.0); TOTAL PROTEIN 6.3 GM/DL (6.4-8.2)
[2017-11-13] MEDS ORDERED: ANTACID SUSP 30 ML UDC (MYLANTA) ONE (06:34)
[2017-11-13] MEDS ORDERED: ACETAMINOPHEN 325 MG TABLET ONE (06:37)
[2017-11-13] MEDS ORDERED: ANTACID SUSP 30 ML UDC (MYLANTA) PO ONE (06:45)
[2017-11-13] MEDS: ACETAMINOPHEN 325 MG TABLET PO PRN (06:47)
[2017-11-13] MEDS: PANTOPRAZOLE 40 MG (PROTONIX) TAB PO SCH (06:47)
[2017-11-13] MEDS: CLOPIDOGREL 75 MG (PLAVIX) TABLET PO SCH (09:15)
[2017-11-13] MEDS: FUROSEMIDE 40 MG (LASIX) TAB PO SCH (09:15)
[2017-11-13] MEDS: ISOSORBIDE MONONITRATE 60 MG (IMDUR) TAB PO SCH (09:15)
[2017-11-13] MEDS: ASPIRIN E.C. 81 MG (ECOTRIN) TAB PO SCH (09:15)
[2017-11-13] MEDS: OMEGA 3 (FISH OIL) 1000 MG CAP PO SCH (09:15)
[2017-11-13] MEDS: ALLOPURINOL 300 MG (ZYLOPRIM) TAB PO SCH (09:15)
[2017-11-13] MEDS: ALPRAZolam 0.5 MG (XANAX) TAB PO SCH ×3 (09:15→20:47)
[2017-11-13] MEDS: LEVOTHYROXINE 100 MCG (LEVOTHROID) TAB PO SCH (09:15)
[2017-11-13] MEDS ORDERED: LIDOCAINE 1% INJ 20 ML 20 ML VIAL ONE (09:39)
[2017-11-13] MEDS ORDERED: HEParin (CATH LAB) 2,000 ML IV ONE (09:39)
[2017-11-13] MEDS ORDERED: NS IV 1000 ML 1,000 ML ONE (09:39)
--- NOTE | 2017-11-13 09:52 | Progress Note-Cardiology ---
Cardiology SOAP Progress Note Subjective: Continues to c/o left sided chest discomfort, which has not changed in intensity. It has remained constant. Feels SOB is somewhat better with breathing treatments. No c/o palpitations, syncope or near syncope. Objective: I&O/Vital Signs 11/13/17 11/13/17 11/13/17 11/13/17 04:00 05:57 06:02 06:05 Temp 96.4 Pulse 70 74 76 79 Resp 16 26 24 20 B/P (MAP) 139/75 (96) 172/92 (118) 169/93 (118) 164/92 (116) Pulse Ox 92 95 95 94 O2 Delivery Nasal Cannula Nasal Cannula Nasal Cannula Nasal Cannula O2 Flow Rate 3.00 3.00 3.00 3.00 11/13/17 11/13/17 11/13/17 11/13/17 06:18 06:20 06:41 07:00 Pulse 73 72 73 Resp 20 20 B/P (MAP) 140/84 (102) 144/86 (105) Pulse Ox 94 94 93 O2 Delivery Nasal Cannula Nasal Cannula Nasal Cannula O2 Flow Rate 3.00 3.00 3.50 11/13/17 11/13/17 11/13/17 11/13/17 08:00 08:36 10:53 11:30 Temp 97.6 98.0 Pulse 79 74 Resp 20 16 B/P (MAP) 129/71 (90) 112/70 (84) Pulse Ox 100 92 93 O2 Delivery Nasal Cannula Nasal Cannula Nasal Cannula Nasal Cannula O2 Flow Rate 3.50 3.00 3.50 3.00 11/13/17 13:45 Temp 97.7 Pulse 81 Resp 18 B/P (MAP) 113/65 (81) Pulse Ox 91 O2 Delivery Nasal Cannula O2 Flow Rate 3.00 11/13/17 00:00 Intake Total 780 ml Balance 780 ml Weight (Pounds): 240 Weight (Ounces): 1.0 Weight (Calculated Kilograms): 108.880855 Constitutional: AAO x 3, well-developed, well-nourished Respiratory: No accessory muscle use, No respiratory distress; other ( prolonged exp phase; diminished throughout) Cardiovascular: regular rate-rhythm; No JVD; S1 and S2, systolic murmur Gastrointestional: No tender; soft, round, audible bowel sounds Extremities: no lower extremity edema bilateral Neurologic/Psychiatric: grossly intact, power is 5/5 both on sides Skin: No rash, No ulcerations Results/Procedures: Labs Laboratory Tests 11/12/17 17:30: Troponin I < 0.30 11/13/17 05:40: White Blood Count 7.0, Red Blood Count 5.24, Hemoglobin 14.9, Hematocrit 45, Mean Corpuscular Volume 86, Mean Corpuscular Hemoglobin 28, Mean Corpuscular Hemoglobin Concent 33, Red Cell Distribution Width 15.4H, Platelet Count 168, Mean Platelet Volume 9.3, Neutrophils (%) (Auto) 65, Lymphocytes (%) (Auto) 24, Monocytes (%) (Auto) 8, Eosinophils (%) (Auto) 3, Basophils (%) (Auto) 0, Neutrophils # (Auto) 4.6, Lymphocytes # (Auto) 1.7, Monocytes # (Auto) 0.5, Eosinophils # (Auto) 0.2, Basophils # (Auto) 0.0, Sodium Level 143, Potassium Level 3.9, Chloride Level 107, Carbon Dioxide Level 29, Anion Gap 7, Blood Urea Nitrogen 27H, Creatinine 1.33H, Estimat Glomerular Filtration Rate 52, BUN/ Creatinine Ratio 20, Glucose Level 94, Calcium Level 9.0, Total Bilirubin 0.7, Aspartate Amino Transf (AST/SGOT) 19, Alanine Aminotransferase (ALT/SGPT) 11, Alkaline Phosphatase 62, Total Protein 6.3L, Albumin 3.4, Triglycerides Level 169H, Cholesterol Level 154, LDL Cholesterol Direct 109, VLDL Cholesterol 34, HDL Cholesterol 29L 11/13/17 06:47: Troponin I < 0.30 A/P: Assessment: Chest pain of undetermined etiology which has persisted CAD - h/o CABG x 3 [place] [address] Salazar at [facility] in [place], [place]. May 2000 underwent left internal mammary artery revision d/t kinking. Chest wall hernia of the lung at the site of a previous quintero hole operation for which he was symptomatic and a Marlex mesh was sutured and anchored from the rib wall and right below the defect by Dr. Browning Most recent cardiac cath in Feb [address] [facility] [address] King showed patent DA SILVA to LAD. Patnet diagonal graft with no residual lesion but aneurysmal prox. 100% right. 100% LAD. 50% left cx. Vein graft to the right was diffusely disease with 20-30% lesions throughout. Reports h/o AAA repair with stenting [place] [address] Browning H/O ICM - most recent echo at [facility] August 2017 showed mild MR, TR and pulmonic. Apical aneurysm with thrombus. LVEF prob at lower limits of normal per Dr. Mccollum Reports h/o a-fib in the past for which he reports he was on warfarin tx in the past, but reports it was stopped for reasons unknown HTN HLP - statin tx Hypothyroidism - replacement tx GERD COPD - following with Dr. Harris of pulmonary services JEFF - intolerant to CPAP tx Oxygen dependent d/t hypoxemia - followed by Dr. Harris H/o tobaccoism - quit in 1980 Diverticulitis with chronic diarrhea Anxiety H/o cholecystectomy Plan: Continued c/o chest pain of undetermined etiology D/t continued c/o and h/o we advise further work up with cardiac cath We have discussed the procedure, risks, benefits and potential complications of cardiac cath with possible ad hoc coronary intervention. He provides informed consent We will proceed later today Continue current medication regimen Further recs will be based on hospital course We have reviewed his received records from [facility] Clinical Quality Measures AMI/AHF: ASA po Prior to arrival: LEXII Ybarra Nov 13, 2017 09:51
[2017-11-13] MEDS ORDERED: MIDAZOLAM 5 MG/5 ML (VERSED) VIAL ONE (10:56)
[2017-11-13] MEDS ORDERED: fentaNYL INJECTION 100 MCG/2 ML AMP ONE (10:56)
[2017-11-13] MEDS ORDERED: diphenhydrAMINE 50 MG/ML INJ (BENADRYL) ONE (10:56)
[2017-11-13] MEDS: NS IV 1000 ML 1,000 ML IV SCH (12:46)
[2017-11-13] MEDS ORDERED: ONDANSETRON 4 MG/2 ML (SDV) Z0FRAN ONE (13:13)
--- NOTE | 2017-11-13 13:56 | Progress Note-Cardiology ---
Cardiology SOAP Progress Note Subjective: Has continued to have chest discomfort that is partially responsive to iv morphine. NTG has resulted in some improvement at time. Nothing has relieved it He does not report palp or syncope He has chronic shortness of breath Objective: I&O/Vital Signs 11/13/17 11/13/17 11/13/17 11/13/17 02:05 04:00 05:57 06:02 Temp 96.4 Pulse 70 74 76 Resp 16 26 24 B/P (MAP) 139/75 (96) 172/92 (118) 169/93 (118) Pulse Ox 94 92 95 95 O2 Delivery Nasal Cannula Nasal Cannula Nasal Cannula Nasal Cannula O2 Flow Rate 3.00 3.00 3.00 3.00 11/13/17 11/13/17 11/13/17 11/13/17 06:05 06:18 06:20 06:41 Pulse 79 73 72 Resp 20 20 20 B/P (MAP) 164/92 (116) 140/84 (102) 144/86 (105) Pulse Ox 94 94 94 93 O2 Delivery Nasal Cannula Nasal Cannula Nasal Cannula Nasal Cannula O2 Flow Rate 3.00 3.00 3.00 3.50 11/13/17 11/13/17 11/13/17 11/13/17 07:00 08:36 10:53 11:30 Temp 97.6 98.0 Pulse 73 79 74 Resp 20 16 B/P (MAP) 129/71 (90) 112/70 (84) Pulse Ox 100 92 93 O2 Delivery Nasal Cannula Nasal Cannula Nasal Cannula O2 Flow Rate 3.00 3.50 3.00 11/13/17 00:00 Intake Total 780 ml Balance 780 ml Weight (Pounds): 240 Weight (Ounces): 1.0 Weight (Calculated Kilograms): 108.489630 Constitutional: AAO x 3, well-developed, well-nourished Respiratory: No accessory muscle use, No respiratory distress; other ( prolonged exp phase; diminished throughout) Cardiovascular: regular rate-rhythm; No JVD; S1 and S2, systolic murmur Gastrointestional: No tender; soft, round, audible bowel sounds Extremities: no lower extremity edema bilateral Neurologic/Psychiatric: grossly intact, power is 5/5 both on sides Skin: No rash, No ulcerations Results/Procedures: Labs Laboratory Tests 11/12/17 17:30: Troponin I < 0.30 11/13/17 05:40: White Blood Count 7.0, Red Blood Count 5.24, Hemoglobin 14.9, Hematocrit 45, Mean Corpuscular Volume 86, Mean Corpuscular Hemoglobin 28, Mean Corpuscular Hemoglobin Concent 33, Red Cell Distribution Width 15.4H, Platelet Count 168, Mean Platelet Volume 9.3, Neutrophils (%) (Auto) 65, Lymphocytes (%) (Auto) 24, Monocytes (%) (Auto) 8, Eosinophils (%) (Auto) 3, Basophils (%) (Auto) 0, Neutrophils # (Auto) 4.6, Lymphocytes # (Auto) 1.7, Monocytes # (Auto) 0.5, Eosinophils # (Auto) 0.2, Basophils # (Auto) 0.0, Sodium Level 143, Potassium Level 3.9, Chloride Level 107, Carbon Dioxide Level 29, Anion Gap 7, Blood Urea Nitrogen 27H, Creatinine 1.33H, Estimat Glomerular Filtration Rate 52, BUN/ Creatinine Ratio 20, Glucose Level 94, Calcium Level 9.0, Total Bilirubin 0.7, Aspartate Amino Transf (AST/SGOT) 19, Alanine Aminotransferase (ALT/SGPT) 11, Alkaline Phosphatase 62, Total Protein 6.3L, Albumin 3.4, Triglycerides Level 169H, Cholesterol Level 154, LDL Cholesterol Direct 109, VLDL Cholesterol 34, HDL Cholesterol 29L 11/13/17 06:47: Troponin I < 0.30 Laboratory Tests 11/12/17 11:28 11/13/17 05:40 A/P: Assessment: Chest pain of undetermined etiology CAD. Card cath of 11/13/17 shows prox occlusion of LAD and RCA and 50% midvessel stenosis of LCX. SVG to a diag and SVG to distal RCA are patent. There is apical akinesis to dyskinesis and LVEF is 40%. LVEDP is elevated at 22 mmHg. This study does not seem changed compared to a card cath at [facility] by Dr King in Feb 2017 CAD - h/o CABG x [address] in [address] Sal[address] at [facility] in [place], [place] Renal insuff, probably CKD 3, followed by the [facility] May 2000 underwent left internal mammary artery revision d/t kinking. Chest wall hernia of the lung at the site of a previous quintero hole operation for which he was symptomatic and a Marlex mesh was sutured and anchored from the rib wall and right below the defect by Dr. Browning Reports h/o AAA repair with stenting [place] [address] Browning H/O ICM - most recent echo at [facility] August 2017 showed mild MR, TR and pulmonic. Apical aneurysm with thrombus. LVEF prob at lower limits of normal per Dr. Mccollum Reports h/o a-fib in the past for which he reports he was on warfarin tx in the past, but reports it was stopped for reasons unknown. He follow with Dr Mccollum on that HTN HLP - statin tx Hypothyroidism - replacement tx GERD COPD - following with Dr. Harris of pulmonary services JEFF - intolerant to CPAP tx Oxygen dependent d/t hypoxemia - followed by Dr. Harris H/o tobaccoism - quit in 1980 Diverticulitis with chronic diarrhea Anxiety H/o cholecystectomy Plan: We reviewed his records from [facility] Due to continuing symptoms and his concern over cardiac etiology, we proceeded with card cath (see above) Symptoms do not appear to be of card origin I discussed his case with Dr Garcia (his Hospitalist) who feels symptoms may be due to pneumobilia and will f/u on it We have recommended continuing current card regimen and f/u with his regular electric meter installer helper (Dr Mccollum) Clinical Quality Measures AMI/AHF: ASA po Prior to arrival: LUPE Scott MD FACP FAC CCDS Nov 13, 2017 13:56
--- NOTE | 2017-11-13 14:39 | Progress Note-Hospitalist ---
Subjective HPI/CC On Admission Date Seen by Provider: Nov 13, 2017 Time Seen by Provider: 14:00 The patient is an 82-year-old white male from [facility]. He came to [place] this morning to see Dr. Harris on a scheduled pulmonary visit. He revealed that he had been to the hospital in [place] last evening with left chest pain radiating to his jaw. He apparently was kept in the emergency room for several hours and did not show any troponin evidence of injury and therefore was sent home. He reports that the pain continued throughout the night and this morning. He has a past history of coronary artery disease and had three-vessel bypass in [place] in the early 1980s. More recently he had stent placement. He normally sees Dr. PEARL at [place]. He states that earlier this year he had an echocardiogram which showed an ejection fraction of about 20 percent. He uses O2 at 3 L/m continuously. Subjective/Events-last exam Patient is status post catheterization and is somewhat groggy.'s provides a lot of the additional information.'s on CT is noted that he has pneumobilia. The last 3 months he's had problems with a cholecystectomy and a retained stone and stent placement in the common bile duct. Evidently the stent was in the common duct bile duct for some time, and has recently been removed. He has had the chest pain more severely in the last 3-4 months. It is not necessarily exertional and does respond to nitroglycerin. Review of Systems Pulmonary: Dyspnea Cardiovascular: Chest Pain Objective Exam Vital Signs Vital Signs Date Time Temp Pulse Resp B/P (MAP) Pulse Ox O2 Delivery O2 Flow Rate FiO2 11/13/17 13:45 97.7 81 18 113/65 (81) 91 Nasal Cannula 3.00 Capillary Refill : Less Than 3 Seconds General Appearance: No Apparent Distress, Obese HEENT: Moist Mucous Membranes Neck: Limited Range of Motion Respiratory: Lungs Clear, Normal Breath Sounds, No Accessory Muscle Use, No Respiratory Distress Cardiovascular: Regular Rate, Rhythm, No Gallop, No Murmur Gastrointestinal: Normal Bowel Sounds, No Organomegaly, Non Tender, Soft Rectal: Deferred Extremity: Non Tender Results/Procedures Lab Laboratory Tests 11/13/17 05:40 Patient resulted labs reviewed. Assessment/Plan Assessment and Plan Assess & Plan/Chief Complaint 1. Chest pain status post heart catheter with patent stents and circulation. Dr. Cherry feels that his chest pain is not cardiac in etiology, although nitroglycerin helps resolve the pain 2. 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 Chronic renal insufficiency after the dye load we'll continue hydration overnight and recheck BUN/creatinine creatinine in the morning 4. Pneumobilia secondary to probable sphincterotomy-I'm uncertain whether this might be a cause for his chest pain although his liver function tests are normal by and large- 5. Chronic anxiety-on Xanax when necessary 6. Gastritis- s/p EGD with evidence of chronic gastritis- will add Carafate Clinical Quality Measures AMI/AHF: ASA po Prior to arrival: No DVT/VTE Risk/Contraindication: Risk Factor Score Per Nursin RFS Level Per Nursing on Admit: 4+=Very High RASTA ELIZABETH MD Nov 13, 2017 14:39
--- NOTE | 2017-11-13 15:46 | CARDIAC CATHETERIZATION ---
DATE OF SERVICE: 11/13/2017 CARDIAC CATHETERIZATION REPORT The patient is an 82-year-old man, who is known to have coronary artery disease and has had coronary artery bypass surgery. He regularly follows with Dr. Mccollum at [facility]. He presented to our emergency room with chest discomfort. The chest discomfort has been waxing and waning and persistent. He is known to have gastroesophageal reflux, but he felt that this was not his gastroesophageal reflux. He was quite concerned about this being of cardiac origin. He did not have any elevation of troponin. Nevertheless, given continued symptoms and has a concern regarding a cardiac problem, we proceeded with cardiac catheterization. PROCEDURE: He was brought to the cardiac catheterization laboratory in a fasting state. The right groin was prepared and draped in the usual sterile fashion. 1% lidocaine for local anesthesia. Modified Seldinger technique was used to advance a 5-Israeli sheath in right femoral artery. A 5-Israeli JL4 catheter for left coronary angiography. A 5-Israeli JR4 catheter for right coronary angiography. A 5-Israeli pigtail catheter was used for left heart catheterization and left ventricular angiography. A 5-Israeli JR4 catheter was used for angiography of the aortocoronary grafts. A 5-Israeli MITCHELL catheter was used for angiography of the left internal mammary artery graft to left anterior descending artery. At the end of the procedure, angiography of the right femoral artery was carried out through the sheath and Mynx was used to achieve hemostasis. HEMODYNAMICS: Left ventricular end-diastolic pressure following coronary angiography was 22 mmHg. There was no significant pressure gradient on pullback across the aortic valve. Ascending aortic pressure was 112/75 with a mean of 94 mmHg. LEFT VENTRICULAR ANGIOGRAPHY: Left ventricular angiography was carried out in right anterior oblique projection. There is apical wall akinesis and dyskinesis. Left ventricular ejection fraction is estimated to be 40%. There does not appear to be significant mitral regurgitation. CORONARY ANGIOGRAPHY: Left main coronary artery does not exhibit significant obstructive disease. Left anterior descending artery is occluded at its ostium. Left circumflex artery has 50% mid vessel stenosis. Right coronary artery is occluded at its ostium. AORTOCORONARY GRAFT ANGIOGRAPHY: The cephalic aortocoronary graft is to a diagonal. This is patent. There is a small aneurysmal segment in its proximal portion. There does not appear to be any significant obstructive disease in this graft. The more caudal graft is to the distal right coronary artery. It is patent. There is a patent stent in its proximal portion. LEFT INTERNAL MAMMARY ARTERY GRAFT ANGIOGRAPHY: Left internal mammary artery graft to mid left anterior descending artery is tortuous, but widely patent and does not exhibit any significant obstructive disease. CONCLUSIONS: 1. [place] coronary artery disease consisting of proximal occlusion of left anterior descending and the right coronary artery, and 50% mid vessel stenosis of the left circumflex. 2. Patent aortocoronary graft to a diagonal. 3. Patent aortocoronary graft to the distal right coronary. 4. Patent left internal mammary artery graft to the mid left anterior descending. 5. Ischemic cardiomyopathy with apical akinesis to dyskinesis and left ventricular ejection fraction of 40%. 6. No significant mitral regurgitation seen on this study. 7. Elevated left ventricular end diastolic pressure. 8. Going by the report of cardiac catheterization carried out at [facility] on 03/13/2017, there does not appear to have been any significant change in coronary or graft status. DISCUSSION AND RECOMMENDATIONS: Based on the results of this cardiac catheterization, coronary and graft status appear stable and unchanged compared to a study of 02/2017 at [facility]. Chest discomfort does not appear to be of cardiac origin. I called Dr. Garcia of the hospitalist service and informed her of the findings and recommended that a workup be undertaken for evaluation for noncardiac causes of chest discomfort, as well. Job ID: [id number] DocumentID: [id number] Dictated Date: 11/13/2017 13:38:24 Bartender Helper Date: 11/13/2017 15:45:33 Dictated By: LUPE HORNE MD, MA, FACP, FACC, MTDD
[2017-11-13] MEDS: SUCRALFATE 1 GM (CARAFATE) TAB PO SCH ×2 (18:18→20:47)
--- NOTE | 2017-11-13 20:03 | CARDIAC CATHETERIZATION ---
DATE OF SERVICE: 11/12/2017 CARDIAC CATHETERIZATION REPORT PLEASE DISREGARD THIS. CARDIAC CATH REPORT FOR THIS DATE HAS ALREADY BEEN DICTATED AND SIGNED Job ID: [id number] DocumentID: [id number] Dictated Date: 11/13/2017 13:29:00 Prime Minister Date: 11/13/2017 15:32:07 Dictated By: LUPE HORNE MD, MA, FACP, FACC, MTDD
[2017-11-13] MEDS: ATORVASTATIN 40 MG (LIPITOR) TABLET PO SCH (20:47)
[2017-11-14 00:20] VITALS: BP 108/55
[2017-11-14] MEDS: NS IV 1000 ML 1,000 ML IV SCH ×2 (00:34→16:25)
[2017-11-14] MEDS: RT-ALBUTEROL/IPRATROPIUM 3 ML (DUONEB) VIAL INH SCH ×6 (01:07→22:02)
[2017-11-14 04:31] VITALS: BP 118/64
[2017-11-14 05:47] LABS: BASOPHILS % (AUTO) 0 % (0-10); EOSINOPHILS # (AUTO) 0.2 10^3/uL (0.0-0.3); EOSINOPHILS % (AUTO) 2 % (0-10); HEMATOCRIT 42 % (40-54); HEMOGLOBIN 13.5 G/DL (13.3-17.7); LYMPHOCYTES # (AUTO) 1.6 X 10^3 (1.0-4.0); LYMPHOCYTES % (AUTO) 20 % (12-44); MEAN CORPUSCULAR HEMOGLOBIN 28 PG (25-34); MEAN CORPUSCULAR HGB CONC 32 G/DL (32-36); MEAN CORPUSCULAR VOLUME 87 FL (80-99); MEAN PLATELET VOLUME 9.6 FL (7.4-10.4); MONOCYTES # (AUTO) 0.7 X 10^3 (0.0-1.0); MONOCYTES % (AUTO) 9 % (0-12); NEUTROPHILS # (AUTO) 5.7 X 10^3 (1.8-7.8); NEUTROPHILS % (AUTO) 69 % (42-75); PLATELET COUNT 162 10^3/uL (130-400); RED BLOOD COUNT 4.77 10^6/uL (4.35-5.85); RED CELL DISTRIBUTION WIDTH 15.8 % (10.0-14.5); WHITE BLOOD COUNT 8.3 10^3/uL (4.3-11.0)
[2017-11-14] MEDS: MULTIVIT W/MINERALS TAB (THERAGRAN M) PO SCH (06:08)
[2017-11-14] MEDS: SUCRALFATE 1 GM (CARAFATE) TAB PO SCH ×4 (06:08→20:41)
[2017-11-14] MEDS: KCL 20 MEQ TAB (K-DUR) PO SCH (06:08)
[2017-11-14 06:20] LABS: ALBUMIN 3.3 GM/DL (3.2-4.5); BILIRUBIN,TOTAL 0.8 MG/DL (0.1-1.0); CALCIUM 8.7 MG/DL (8.5-10.1); CREATININE SERUM 1.25 MG/DL (0.60-1.30); POTASSIUM 3.9 MMOL/L (3.6-5.0); TOTAL PROTEIN 5.9 GM/DL (6.4-8.2)
[2017-11-14 06:46] LABS: ERYTHROCYTE SEDIMENTATION RATE 9 MM/HR (0-30)
[2017-11-14 08:53] VITALS: BP 127/62
[2017-11-14] MEDS: FUROSEMIDE 40 MG (LASIX) TAB PO SCH (08:54)
[2017-11-14] MEDS: ALLOPURINOL 300 MG (ZYLOPRIM) TAB PO SCH (08:54)
[2017-11-14] MEDS: ACETAMINOPHEN 325 MG TABLET PO PRN (08:54)
[2017-11-14] MEDS: PANTOPRAZOLE 40 MG (PROTONIX) TAB PO SCH (08:54)
[2017-11-14] MEDS: ALPRAZolam 0.5 MG (XANAX) TAB PO SCH ×3 (08:54→20:41)
[2017-11-14] MEDS: ISOSORBIDE MONONITRATE 60 MG (IMDUR) TAB PO SCH (08:54)
[2017-11-14] MEDS: ASPIRIN E.C. 81 MG (ECOTRIN) TAB PO SCH (08:54)
[2017-11-14] MEDS: CLOPIDOGREL 75 MG (PLAVIX) TABLET PO SCH (08:55)
[2017-11-14] MEDS: LEVOTHYROXINE 100 MCG (LEVOTHROID) TAB PO SCH (08:55)
[2017-11-14] MEDS: OMEGA 3 (FISH OIL) 1000 MG CAP PO SCH (08:55)
[2017-11-14] MEDS ORDERED: SUCR1TAB PO (11:08)
--- NOTE | 2017-11-14 11:36 | Diagnostic Imaging Report ---
INDICATION: Hypoxia PA and lateral chest obtained at 1139 AM and compared with 11/12/2017. There is cardiomegaly and poststernotomy change. There is central vascular congestion with bibasilar infiltrates, left greater than right. There is volume loss in the left lung base with elevation of the left hemidiaphragm. These findings are all unchanged compared to the previous study. There is no significant sized effusion. IMPRESSION: Volume loss left hemithorax similar to the prior study with elevation of the left hemidiaphragm. Bibasilar infiltrates and central vascular congestion are stable compared to the prior study. There is cardiomegaly. There is no new abnormality. Dictated by: Dictated on workstation # [id number]
--- NOTE | 2017-11-14 12:28 | Progress Note-Hospitalist ---
Subjective HPI/CC On Admission Date Seen by Provider: Nov 14, 2017 Time Seen by Provider: 10:00 The patient is an 82-year-old white male from [facility]. He came to [place] this morning to see Dr. Harris on a scheduled pulmonary visit. He revealed that he had been to the hospital in [place] last evening with left chest pain radiating to his jaw. He apparently was kept in the emergency room for several hours and did not show any troponin evidence of injury and therefore was sent home. He reports that the pain continued throughout the night and this morning. He has a past history of coronary artery disease and had three-vessel bypass in [place] in the early 1980s. More recently he had stent placement. He normally sees Dr. PEARL at [place]. He states that earlier this year he had an echocardiogram which showed an ejection fraction of about 20 percent. He uses O2 at 3 L/m continuously. Subjective/Events-last exam Patient continues to be very weak and his oxygenation has been dropping. He is requiring more oxygen is up to 5 L nasal cannula. He continues to have discomfort episodically. He is somewhat tremulous and much weaker than he had been. Labs are returned to normal. Because of his increased oxygen needs Dr. Harris's consult at who is concerned that he may have Parkinson's it's been undiagnosed and that with his compromised respiratory status sending him home might be injurious. Chest x-ray shows no difference other than atelectasis Review of Systems Pulmonary: Dyspnea, Cough Cardiovascular: Chest Pain Neurological: Weakness Objective Exam Vital Signs Vital Signs Date Time Temp Pulse Resp B/P (MAP) Pulse Ox O2 Delivery O2 Flow Rate FiO2 11/14/17 09:56 93 Nasal Cannula 5.00 11/14/17 08:53 98.6 92 26 127/62 (83) Capillary Refill : Less Than 3 Seconds General Appearance: Chronically ill HEENT: Normal ENT Inspection Neck: Supple Respiratory: Chest Non Tender, No Respiratory Distress, Decreased Breath Sounds , Wheezing (X pirate Yuki) Cardiovascular: Regular Rate, Rhythm, No Gallop, Systolic Murmur Gastrointestinal: Normal Bowel Sounds, No Organomegaly, Non Tender, Soft Rectal: Deferred Back: Normal Inspection Extremity: Pedal Edema Neurologic/Psychiatric: Alert, Depressed Affect, Motor Weakness Results/Procedures Lab Laboratory Tests 11/14/17 05:10 Patient resulted labs reviewed. Imaging: Reviewed Imaging Films, Reviewed Imaging Report Assessment/Plan Assessment and Plan Assess & Plan/Chief Complaint 1. Chest pain status post heart catheter with patent stents and circulation. Dr. Cherry feels that his chest pain is not cardiac in etiology, although nitroglycerin helps resolve the pain. Will order a d-dimer to evaluate for pulmonary embolus. 2. 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 We'll check an ABG 3. Chronic renal insufficiency after the dye load we'll continue hydration overnight and recheck BUN/creatinine creatinine in the morning-BUN/creatinine are within normal limits 4. Pneumobilia secondary to probable sphincterotomy-I'm uncertain whether this might be a cause for his chest pain although his liver function tests are normal by and large- 5. Chronic anxiety-on Xanax when necessary-this may be affecting his increased weakness 6. Gastritis- s/p EGD with evidence of chronic gastritis- will add Carafate 7. Increased weakness consideration being given to Parkinson's. Will look into his stay in acute rehabilitation for increased strengthening Clinical Quality Measures AMI/AHF: ASA po Prior to arrival: No DVT/VTE Risk/Contraindication: Risk Factor Score Per Nursin RFS Level Per Nursing on Admit: 4+=Very High RASTA ELIZABETH MD Nov 14, 2017 12:27
[2017-11-14 12:30] VITALS: BP 114/58
[2017-11-14 12:39] LABS: ABG BASE EXCESS 3.3 MMOL/L (-2.5-2.5); ABG OXYGEN SATURATION 95 % (94-100); ABG PCO2 48 MMHG (35-45); ABG PH 7.39 (7.37-7.43); ABG PO2 72 MMHG (79-93); ABG TCO2 29.4 MMOL/L (21.0-31.0)
[2017-11-14 12:41] LABS: ALLENS TEST YES-POS; INSPIRED O2 5; PATIENT TEMP 98.6; VENTILATOR NO
[2017-11-14] MEDS ORDERED: IOHEXOL 350 MG/ML 150 ML (OMNIPAQUE 350) VIAL IV ONE (15:15)
[2017-11-14] MEDS ORDERED: NS 250 ML (IVPB) BAG IV ONE (15:15)
[2017-11-14] MEDS ORDERED: CATHETER FLUSH 10 ML SYR IV PRN (15:15)
--- NOTE | 2017-11-14 15:15 | Physical Therapy Progress Note ---
Therapy Progress Note No treatment this p.m. secondary to elevated D-dimer and testing. PT to begin in a.m. 1 visit LIZZETTE ALARCON PT Nov 14, 2017 15:15
[2017-11-14 16:00] VITALS: BP 136/70
--- NOTE | 2017-11-14 16:07 | Diagnostic Imaging Report ---
PROCEDURE: CT angiography of the chest with contrast. TECHNIQUE: Multiple contiguous axial images were obtained through the chest after uneventful bolus administration of intravenous contrast. Reconstructed CTA MIP acquisitions were also performed. INDICATION: Positive D-dimer, shortness of breath. FINDINGS: There are no intraluminal pulmonary arterial filling defects. There are no findings of pulmonary arterial embolus. Thinning defect and elevation of the left hemidiaphragm, a chronic finding with subjacent basilar and infrahilar partial atelectasis. Peripheral cyst formation and changes of centrilobular emphysema are present. Thoracic aorta is nonaneurysmal. There is no pleural or pericardial effusion. Visualized upper abdomen, nonacute. IMPRESSION: Negative for PE. Elevated left diaphragm with some fatty herniation results in poor expansion of the left lung base and zones of atelectasis, unchanged. No acute aortic pathology. No pneumothorax. Underlying COPD, chronic. Dictated by: Dictated on workstation # [id number]
--- NOTE | 2017-11-14 16:13 | Pulmonary Consultation ---
History of Present Illness History of Present Illness Date of Consultation 11/14/17 16:10 Time Seen by Provider: 07:14 Date of Admission History of Present Illness 82yo with hx of CAD, severe oxygen dependent COPD, and debility patient who presented to ED from my office on 11/12 secondary to worsening persist midsternal CP radiation to left arm and Jaw. symptoms worse over the last few days. Improved but not resolved after SL nitro. Pt did go to [place] ED the day prior. I am being consulted today 11/14 to evaluate if patient is ready for discharge. PT is currently requiring 5-6 liters of oxygen and he is normally on 3 liters of oxygen at home. Pt state he is more SOB and does not feel that he is ready for discharge. Allergies and Home Medications Allergies Coded Allergies: No Known Drug Allergies (Unverified , 10/23/17) Home Medications Albuterol Sulfate 1 Puff Puff, 2 PUFF IH QID PRN for SHORTNESS OF BREATH, ( Reported) 1 PUFF = 90 MCG Allopurinol 300 Mg Tablet, 300 MG PO DAILY, (Reported) Atorvastatin Calcium 40 Mg Tablet, 40 MG PO HS, (Reported) Citalopram Hydrobromide 40 Mg Tablet, 40 MG PO DAILY, (Reported) Clopidogrel Bisulfate 75 Mg Tablet, 75 MG PO DAILY, (Reported) Furosemide 20 Mg Tablet, 40 MG PO DAILY, (Reported) TAKES 2 (20MG) TABLETS Isosorbide Mononitrate 60 Mg Tab, 60 MG PO DAILY, (Reported) Levothyroxine Sodium 100 Mcg Tablet, 100 MCG PO DAILY, (Reported) Multivitamin 1 Each Tablet, 1 TAB PO DAILY, (Reported) Nitroglycerin 0.4 Mg Tab.subl, 0.4 MG SL UD PRN for CHEST PAIN, (Reported) Morrill 3 Polyunsat Fatty Acids 1,000 Mg Cap, 2,000 MG PO DAILY, (Reported) TAKES 2 (1000MG) CAPSULES Pantoprazole Sodium 40 Mg Tablet.dr, 40 MG PO DAILY, (Reported) Potassium Chloride 20 Meq Tablet.er, 40 MEQ PO DAILY, (Reported) TAKES 2 (20MEQ) TABLETS Potassium Chloride 20 Meq Tablet.er, 20 MEQ PO 1200, (Reported) Sucralfate 1 Gm Tablet, 1 GM PO ACHS Prescribed by: RASTA ELIZABETH on 11/14/17 1108 Umeclidinium Marion 62.5 Mcg Blst.w.dev, 1 PUFF IH DAILY, (Reported) Past Lyzrbzr-Qxirpt-Cxmlfj Hx Past Med/Social Hx: Reviewed Nursing Past Med/Soc Hx Patient Social History Alcohol Use: Denies Use Recreational Drug Use: No Smoking Status: Former Smoker Type Used: Cigarettes Former Smoker, Quit: Nov 12, 1980 Recent Foreign Travel: No Contact w/Someone Who Travel: No Recent Infectious Disease Expo: No Physical Abuse: No Sexual Abuse: No Immunizations Up To Date Date of Pneumonia Vaccine: Nov 13, 2015 Seasonal Allergies Seasonal Allergies: No Past Medical History Surgeries: Yes Appendectomy, Cardiac, CABG, Gallbladder, Vascular Surgery Respiratory: Yes Asthma, Sleep Apnea, COPD Currently Using CPAP: No Cardiac: Yes (CABG, AAA, STENTS, CATH, GRAFT REPAIR) Atrial Fibrillation, High Cholesterol, Hypertension Neurological: No Genitourinary: No Gastrointestinal: Yes (DIVERTICULITIS) Chronic Diarrhea, Irritable Bowel Musculoskeletal: Yes Gout Endocrine: Yes Hypothyroidsim Cancer: Yes (MELONOMA) Psychosocial: Yes Anxiety Nursing Suicide Risk Score: 0 Integumentary: No Family Medical History Reviewed Nursing Family Hx No Pertinent Family Hx Review of Systems Time Seen by Provider: 07:19 Constitutional: Sweats, Weakness, Malaise; No: Fever, Chills, Other Eyes: No: Pain, Vision change, Conjunctivae inflammation, Eyelid inflammation, Other, Redness ENT: Nose congestion; No: Ear pain, Ear discharge, Nose pain, Nose discharge, Mouth pain, Mouth swelling, Throat pain, Throat swelling, Other Respiratory: Cough, Dry, Shortness of breath, SOB with excertion Cardiovascular: Paroxysmal Noc. Dyspnea; No: Chest Pain, Palpitations, Orthopnea, Edema, Lt Headedness, Other Gastrointestinal: No: Nausea, Vomiting, Abdominal Pain, Diarrhea, Constipation , Melena, Hematochezia, Other Genitourinary: No Dysuria, No Frequency, No Incontinence, No Hematuria, No Retention, No Other Neurological: Weakness, Incoordination, Confusion Sepsis Event Evaluation Height, Weight, BMI Height: 5'8.00" Weight: 240lbs. 1.0oz. 108.653445ay; 36.5 BMI Method:Stated Exam Exam Vital Signs Date Time Temp Pulse Resp B/P (MAP) Pulse Ox O2 Delivery O2 Flow Rate FiO2 11/14/17 14:28 93 Nasal Cannula 5.00 11/14/17 13:00 89 11/14/17 12:30 98.1 95 16 114/58 (76) 92 Nasal Cannula 5.00 11/14/17 09:56 93 Nasal Cannula 5.00 11/14/17 08:53 98.6 92 26 127/62 (83) 92 Nasal Cannula 5.00 11/14/17 07:48 Nasal Cannula 5.00 11/14/17 07:00 93 Nasal Cannula 5.00 11/14/17 07:00 82 11/14/17 04:31 98.3 80 18 118/64 (82) 93 Nasal Cannula 5.00 11/14/17 01:08 92 Nasal Cannula 5.00 11/14/17 01:00 74 11/14/17 00:20 98.2 78 18 108/55 (72) 95 Nasal Cannula 5.00 11/13/17 21:01 93 Nasal Cannula 5.00 11/13/17 20:48 Nasal Cannula 5.00 11/13/17 19:10 98.5 78 18 122/74 (90) 93 Nasal Cannula 3.00 11/13/17 19:00 76 11/13/17 18:52 91 Nasal Cannula 5.00 11/13/17 16:45 84 18 123/79 93 5.00 11/13/17 16:45 97.3 84 18 123/79 (94) 93 Nasal Cannula 3.00 I & O 11/14/17 07:00 Intake Total 1690 ml Output Total 200 ml Balance 1490 ml Height & Weight Height: 5'8.00" Weight: 240lbs. 1.0oz. 108.706906yp; 36.5 BMI Method:Stated General Appearance: Anxious, Chronically ill, Mild Distress, Obese HEENT: Normal ENT Inspection, Pharynx Normal Neck: Full Range of Motion, Non Tender, Supple Respiratory: Chest Non Tender, No Respiratory Distress, Decreased Breath Sounds , Wheezing (X pirate Yuki) Cardiovascular: Regular Rate, Rhythm, No Gallop, Systolic Murmur Capillary Refill: Less Than 3 Seconds Gastrointestinal: normal bowel sounds, non tender, soft, no organomegaly Extremity: Normal Capillary Refill, Normal Inspection, Pedal Edema Neurologic/Psychiatric: Alert, Oriented x3, Depressed Affect, Motor Weakness Skin: Normal Color, Warm/Dry Lymphatic: No Adenopathy Results Lab Laboratory Tests 11/13/17 05:40 11/14/17 05:10 Assessment/Plan Assessment/Plan Weakness, SOB, and hypoxia -Check CTA Atelectasis -Will do bronchoscopy in AM to r/o endobronchial mass Weakness, hand tremors -Start levodopa for possible parkinsons -Check TSH Secondary to increased oxygen requirements, weakness, and SOB I recommend holding discharge. Discussed extensively with Dr. Elizabeth. DOREEN CAMPA DO Nov 14, 2017 16:13
--- NOTE | 2017-11-14 17:50 | Progress Note-Cardiology ---
Cardiology SOAP Progress Note Subjective: Symptoms as before No new symptoms Objective: I&O/Vital Signs 11/14/17 11/14/17 11/14/17 11/14/17 07:00 07:00 07:48 08:53 Temp 98.6 Pulse 82 92 Resp 26 B/P (MAP) 127/62 (83) Pulse Ox 93 92 O2 Delivery Nasal Cannula Nasal Cannula Nasal Cannula O2 Flow Rate 5.00 5.00 5.00 11/14/17 11/14/17 11/14/17 11/14/17 09:56 12:30 13:00 14:28 Temp 98.1 Pulse 95 89 Resp 16 B/P (MAP) 114/58 (76) Pulse Ox 93 92 93 O2 Delivery Nasal Cannula Nasal Cannula Nasal Cannula O2 Flow Rate 5.00 5.00 5.00 11/14/17 16:00 Temp 97.8 Pulse 100 Resp 20 B/P (MAP) 136/70 (92) Pulse Ox 91 O2 Delivery Nasal Cannula O2 Flow Rate 5.00 11/14/17 00:00 Intake Total 1540 ml Balance 1540 ml Weight (Pounds): 240 Weight (Ounces): 1.0 Weight (Calculated Kilograms): 108.394923 Constitutional: AAO x 3, well-developed, well-nourished Respiratory: No accessory muscle use, No respiratory distress; other ( prolonged exp phase; diminished throughout) Cardiovascular: regular rate-rhythm; No JVD; S1 and S2, systolic murmur Gastrointestional: No tender; soft, round, audible bowel sounds Extremities: no lower extremity edema bilateral Neurologic/Psychiatric: grossly intact, power is 5/5 both on sides Skin: No rash, No ulcerations Results/Procedures: Labs Laboratory Tests 11/14/17 05:10: White Blood Count 8.3, Red Blood Count 4.77, Hemoglobin 13.5, Hematocrit 42, Mean Corpuscular Volume 87, Mean Corpuscular Hemoglobin 28, Mean Corpuscular Hemoglobin Concent 32, Red Cell Distribution Width 15.8H, Platelet Count 162, Mean Platelet Volume 9.6, Neutrophils (%) (Auto) 69, Lymphocytes (%) (Auto) 20, Monocytes (%) (Auto) 9, Eosinophils (%) (Auto) 2, Basophils (%) (Auto) 0, Neutrophils # (Auto) 5.7, Lymphocytes # (Auto) 1.6, Monocytes # (Auto) 0.7, Eosinophils # (Auto) 0.2, Basophils # (Auto) 0.0, Erythrocyte Sedimentation Rate 9, Sodium Level 142, Potassium Level 3.9, Chloride Level 107, Carbon Dioxide Level 28, Anion Gap 7, Blood Urea Nitrogen 22H, Creatinine 1.25, Estimat Glomerular Filtration Rate 56, BUN/Creatinine Ratio 18, Glucose Level 91 , Calcium Level 8.7, Total Bilirubin 0.8, Aspartate Amino Transf (AST/SGOT) 14, Alanine Aminotransferase (ALT/SGPT) 12, Alkaline Phosphatase 65, Total Protein 5.9L, Albumin 3.3 11/14/17 12:25: D-Dimer 2.66H, Total Creatine Kinase 76, Thyroid Stimulating Hormone (TSH) 1.49 11/14/17 12:32: Blood Gas Puncture Site r rad, Blood Gas Patient Temperature 98.6, Arterial Blood pH 7.39, Arterial Blood Partial Pressure CO2 48H, Arterial Blood Partial Pressure O2 72L, Arterial Blood HCO3 28H, Arterial Blood Total CO2 29.4, Arterial Blood Oxygen Saturation 95, Arterial Blood Base Excess 3.3H, Carlton Test YES-POS, Blood Gas Ventilator Setting NO, Blood Gas Inspired Oxygen 5 Laboratory Tests 11/13/17 05:40 11/14/17 05:10 A/P: Assessment: Chest pain of undetermined etiology; does not appear to be of coronary origin ( coronary and graft status stable: see below) CAD. Card cath of 11/13/17 shows prox occlusion of LAD and RCA and 50% midvessel stenosis of LCX. SVG to a diag and SVG to distal RCA are patent. There is apical akinesis to dyskinesis and LVEF is 40%. LVEDP is elevated at 22 mmHg. This study does not seem changed compared to a card cath at [facility] by Dr King in Feb 2017 CAD - h/o CABG x 3 vessel in [address] Salazar at [facility] in [place], [place] Renal insuff, probably CKD 3, followed by the Med Svce May 2000 underwent left internal mammary artery revision d/t kinking. Chest wall hernia of the lung at the site of a previous quintero hole operation for which he was symptomatic and a Marlex mesh was sutured and anchored from the rib wall and right below the defect by Dr. Browning Reports h/o AAA repair with stenting [place] [address] Browning [facility] - most recent echo at [facility] August 2017 showed mild MR, TR and pulmonic. Apical aneurysm with thrombus. LVEF prob at lower limits of normal per Dr. Mccollum Reports h/o a-fib in the past for which he reports he was on warfarin tx in the past, but reports it was stopped for reasons unknown. He follow with Dr Mccollum on that HTN HLP - statin tx Hypothyroidism - replacement tx GERD COPD - following with Dr. Harris of pulmonary services JEFF - intolerant to CPAP tx Oxygen dependent d/t hypoxemia - followed by Dr. Harris H/o tobaccoism - quit in 1980 Diverticulitis with chronic diarrhea Anxiety H/o cholecystectomy Plan: We reviewed his cath findings and discussed them with him. 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
[2017-11-14] MEDS: SINEMET 10/100 (CARBIDOPA/LEVADOPA) TAB PO SCH (18:16)
[2017-11-14 20:13] VITALS: BP 132/64
[2017-11-14] MEDS: ATORVASTATIN 40 MG (LIPITOR) TABLET PO SCH (20:41)
[2017-11-15] VITALS: BP 127/51
[2017-11-15] MEDS: RT-ALBUTEROL/IPRATROPIUM 3 ML (DUONEB) VIAL INH SCH ×3 (02:02→10:21)
[2017-11-15] MEDS: NS IV 1000 ML 1,000 ML IV SCH ×2 (02:17→11:36)
[2017-11-15 03:34] VITALS: BP 139/72
--- NOTE | 2017-11-15 05:33 | Pulmonary Progress Note ---
Subjective Time Seen by Provider: 05:33 Subjective/Events-last exam Pt has been on 5 liters of oxygen all night. Sepsis Event Evaluation Height, Weight, BMI Height: 5'8.00" Weight: 240lbs. 1.0oz. 108.826957hf; 36.5 BMI Method:Stated Exam Exam Vital Signs Date Time Temp Pulse Resp B/P (MAP) Pulse Ox O2 Delivery O2 Flow Rate FiO2 11/15/17 03:34 98.0 83 17 139/72 (94) Nasal Cannula 11/15/17 02:02 97 Nasal Cannula 5.00 11/15/17 01:00 77 11/15/17 00:00 97.6 89 20 127/51 (76) 91 Nasal Cannula 5.00 11/14/17 22:03 93 Nasal Cannula 5.00 11/14/17 20:42 Nasal Cannula 5.00 11/14/17 20:13 98.2 84 20 132/64 (86) 97 Nasal Cannula 5.00 11/14/17 19:02 88 Nasal Cannula 5.00 11/14/17 19:00 86 11/14/17 16:00 97.8 100 20 136/70 (92) 91 Nasal Cannula 5.00 11/14/17 14:28 93 Nasal Cannula 5.00 11/14/17 13:00 89 11/14/17 12:30 98.1 95 16 114/58 (76) 92 Nasal Cannula 5.00 11/14/17 09:56 93 Nasal Cannula 5.00 11/14/17 08:53 98.6 92 26 127/62 (83) 92 Nasal Cannula 5.00 11/14/17 07:48 Nasal Cannula 5.00 11/14/17 07:00 93 Nasal Cannula 5.00 11/14/17 07:00 82 I & O 11/15/17 07:00 Intake Total 2380 ml Balance 2380 ml Height & Weight Height: 5'8.00" Weight: 240lbs. 1.0oz. 108.069708gj; 36.5 BMI Method:Stated General Appearance: No Apparent Distress, Chronically ill HEENT: Normal ENT Inspection Neck: Full Range of Motion, Normal Inspection, Supple Respiratory: Chest Non Tender, No Respiratory Distress, Decreased Breath Sounds , Wheezing (X pirate Yuki) Cardiovascular: Regular Rate, Rhythm, No Gallop, Systolic Murmur Capillary Refill: Less Than 3 Seconds Extremity: Pedal Edema Neurologic/Psychiatric: Alert, Depressed Affect, Motor Weakness Skin: Normal Color, Warm/Dry Lymphatic: No Adenopathy Results Lab Laboratory Tests 11/13/17 05:40 11/14/17 05:10 Assessment/Plan Assessment/Plan Weakness, SOB, and hypoxia -Check CTA Atelectasis -Will do bronchoscopy this AM to r/o endobronchial mass and mucous plugging -PT was going to be discharged yesterday however was having increased oxygen requirements. Weakness, hand tremors -Start levodopa for possible parkinsons Labs and radiology reviewed. No PE noted on CT scan. DOREEN CAMPA DO Nov 15, 2017 05:33
--- NOTE | 2017-11-15 06:30 | Progress Note-Pre Operative ---
Pre-Operative Progress Note H&P Reviewed The H&P was reviewed, patient examined and no changes noted. Time Seen by Provider: 06:30 Date H&P Reviewed: Nov 15, 2017 Time H&P Reviewed: 06:30 Pre-Operative Diagnosis: atelectasis r/o DOREEN Salgado DO Nov 15, 2017 06:30
--- NOTE | 2017-11-15 06:31 | Pre-Op Note & Conscious Sedat ---
Pre-Operative Progress Note H&P Reviewed The H&P was reviewed, patient examined and no changes noted. Date H&P Reviewed: Nov 15, 2017 Time H&P Reviewed: 06:31 Conscious Sedation Pre-Proced Time Reviewed: 06:30 ASA Class: 3 Airway Mallampati Classification: ([place] appropriate class) I. II. III, IV Lungs Heart ASA score ASA 1: a normal healthy patient ASA 2: a patient with a mild systemic disease (mid diabetes, controlled hypertension, obesity ASA 3: a patient with a severe systemic disease that limits activity (angina , COPD, prior Myocardial infarction) ASA 4: a patient with an incapacitating disease that is a constant threat to life (CHF, renal failure) ASA 5: a moribund patient not expected to survive 24 hrs. (ruptured aneurysm) ASA 6: a declared brain patient whose organs are being harvested. For emergent operations, add the letter E after the classification Grade 4 Sedation Plan: Analgesia, Amnesia, Plan communicated to team members, Discussed options with patient/fam, Discussed risks with patient/fam Note The patient is an appropriate candidate to undergo the planned procedure, sedation, and anesthesia. The patient immediately re-assessed prior to indication. DOREEN CAMPA DO Nov 15, 2017 06:31
[2017-11-15] MEDS: SUCRALFATE 1 GM (CARAFATE) TAB PO SCH ×2 (06:39→11:36)
[2017-11-15] MEDS: KCL 20 MEQ TAB (K-DUR) PO SCH (06:39)
[2017-11-15] MEDS: MULTIVIT W/MINERALS TAB (THERAGRAN M) PO SCH (06:40)
[2017-11-15] MEDS: SINEMET 10/100 (CARBIDOPA/LEVADOPA) TAB PO SCH ×2 (06:40→12:11)
[2017-11-15 06:43] LABS: HEMOGLOBIN 13.8 G/DL (13.3-17.7); MEAN PLATELET VOLUME 9.5 FL (7.4-10.4); RED BLOOD COUNT 4.78 10^6/uL (4.35-5.85); RED CELL DISTRIBUTION WIDTH 15.7 % (10.0-14.5); WHITE BLOOD COUNT 7.8 10^3/uL (4.3-11.0)
[2017-11-15] MEDS ORDERED: NS IV 500 ML 500 ML IV PRN (06:50)
[2017-11-15 07:00] LABS: BUN/CREATININE RATIO 14; CALCIUM 8.7 MG/DL (8.5-10.1); CARBON DIOXIDE 29 MMOL/L (21-32); CHLORIDE 107 MMOL/L (98-107); CREATININE SERUM 1.06 MG/DL (0.60-1.30); GFR ESTIMATED > 60; GLUCOSE 98 MG/DL (70-105); POTASSIUM 3.7 MMOL/L (3.6-5.0); SODIUM 144 MMOL/L (135-145)
[2017-11-15] MEDS ORDERED: fentaNYL INJECTION 100 MCG/2 ML AMP IVP PRN (07:00)
[2017-11-15] MEDS ORDERED: MIDAZOLAM 2 MG/2 ML (VERSED) VIAL IVP PRN (07:00)
[2017-11-15] MEDS ORDERED: NALOXONE 0.4 MG/ML 1 ML (NARCAN) VIAL IVP PRN (07:00)
[2017-11-15] MEDS ORDERED: FLUMAZENIL (ROMAZICON) 0.1 MG/ML 5 ML VIAL INJ PRN (07:00)
--- NOTE | 2017-11-15 07:13 | Pulmonary Procedures ---
Pulmonary Procedures Date of Procedure Date of Service: Nov 15, 2017 Bronch Bronchoscopy with bronchoalveolar lavage (BAL), transbronchial washes Preop DX LLL atelectasis Postop DX: same - mucous plugging no endobronchial mass noted. Complications: none After informed consent obtained and formal time out pt was sedated using Fentanyl and Versed. Bronchoscope was advanced through the nare and vocal cords. 1% lidocaine was used to anesthetize vocal cords, epiglottis, angel, and left/right main stem bronchus. An anatomical tour was undertaken down to the segmental bronchi bilaterally. No endobronchial lesions noted. copious amounts of sputum noted bilaterally From the LLL a bronchoalveolar lavage (BAL) , transbronchial washes were obtained. Pt tolerated procedure well. No complications noted. Stat CXR is pending. DOREEN CAMPA DO Nov 15, 2017 07:13
[2017-11-15] MEDS ORDERED: MIDAZOLAM 2 MG/2 ML (VERSED) VIAL ONE ×3 (07:17→07:28)
[2017-11-15] MEDS ORDERED: fentaNYL INJECTION 100 MCG/2 ML AMP ONE (07:18)
[2017-11-15 08:00] VITALS: BP 158/84
[2017-11-15] MEDS: ISOSORBIDE MONONITRATE 60 MG (IMDUR) TAB PO SCH (08:29)
[2017-11-15] MEDS: LEVOTHYROXINE 100 MCG (LEVOTHROID) TAB PO SCH (08:29)
[2017-11-15] MEDS: ASPIRIN E.C. 81 MG (ECOTRIN) TAB PO SCH (08:29)
[2017-11-15] MEDS: OMEGA 3 (FISH OIL) 1000 MG CAP PO SCH (08:29)
[2017-11-15] MEDS: CLOPIDOGREL 75 MG (PLAVIX) TABLET PO SCH (08:29)
[2017-11-15] MEDS: FUROSEMIDE 40 MG (LASIX) TAB PO SCH (08:29)
[2017-11-15] MEDS: ALPRAZolam 0.5 MG (XANAX) TAB PO SCH ×2 (08:29→12:12)
[2017-11-15] MEDS: PANTOPRAZOLE 40 MG (PROTONIX) TAB PO SCH (08:29)
[2017-11-15] MEDS: ALLOPURINOL 300 MG (ZYLOPRIM) TAB PO SCH (08:29)
--- NOTE | 2017-11-15 08:35 | Diagnostic Imaging Report ---
Indication: Post bronc. Compared 11/14/2017 Findings: There are diffuse interstitial opacities in the right lung with some vascular congestion not substantially changed. Extensive pleural parenchymal opacity at the left base with only portions of the upper lobe at the apex aerated on followup. Left chest dense opacities probably at least mildly increased from prior, the change itself may reflect increased pleural fluid volume. Cardiomegaly is also likely at least somewhat increased. Impression: 1. Increased left thoracic pleural parenchymal opacity and progressive enlargement of the cardiac silhouette. The vascular congestion and likely edema on the right not obviously changed. 2. No pneumothorax or pneumomediastinum post bronchoscopy. Dictated by: Dictated on workstation # [id number]
--- NOTE | 2017-11-15 10:09 | Physical Therapy Evaluation ---
PT Evaluation-General Medical Diagnosis Admission Date Nov 15, 2017 at 09:30 Medical Diagnosis: chest pain Onset Date: Nov 14, 2017 Therapy Diagnosis Therapy Diagnosis: debility Height/Weight Height (Feet): 5 Height (Inches): 8.00 Weight (Pounds): 240 Weight (Ounces): 1.0 Precautions Precautions/Isolations: Standard Precautions Weight Bear Status Right Lower Extremity: Right Weight Bearing/Tolerated Left Lower Extremity: Left Weight Bearing/Tolerated Referral Physician: Jose Reason for Referral: Evaluation/Treatment Medical History Pertinent Medical History: Atrial Fib, CABG, CAD, COPD, HTN, Hypothroidism Additional Medical History Parkinson's ? Current History ED with CP down left UE and neck Reviewed History: Yes Social History Home: Single Level Current Living Status: Spouse Entry Into Home: Stairs With Railing PT Steps Into Home: 3 Prior/Core FIM Prior Level of Function Functional [place] Measure 0=Not Assessed/NA 4=Minimal Assistance 1=Total Assistance 5=Supervision or Setup 2=Maximal Assistance 6=Modified [place] 3=Moderate Assistance 7=Complete [place] Bed Mobility: 7 Transfers (B,C,W/C) (FIM): 7 Gait: 7 PT Evaluation-Current Subjective Patient and spouse agree to PT. Mild c/o dizziness/lightheadedness Pain Numeric Pain Scale: 0-No Pain Location: No Pain Reported Objective Patient Orientation: Normal For Age Problem Solving: Fair Attachments: Oxygen (5L), IV ROM/Strength ROM Lower Extremities bilateral LE WNL Strength Lower Extremities 4+/5 grossly bilaterally Integumentary/Posture Integumentary refer to nursing notes Bowel Incontinence: No Bladder Incontinence: No Posture WFL Neuromuscular (Tone, Coordination, Reflexes) grossly intact Sensory Vision: Wears Glasses Hearing: Impaired Sensation Right Lower Extremit: Intact Sensation Left Lower Extremity: Intact Transfers Functional [place] Measure 0=Not Assessed/NA 4=Minimal Assistance 1=Total Assistance 5=Supervision or Setup 2=Maximal Assistance 6=Modified [place] 3=Moderate Assistance 7=Complete [place] Transfers (B, C, W/C) (FIM): 6 Scootin Rollin Supine to/from Sit: 6 Sit to/from Stand: 7 Gait Mode of Locomotion: Walk Anticipated Mode of Locomotion: Walk Gait (FIM): 7 Distance (FIM): 3=150 ft Distance: 500' Gait Level of Assist: 7 Gait Assistive Device: None Comments/Gait Description No deviations/functional gait sequence Stairs Stairs (FIM): 2 #of Steps: 4 Level of Assist: 5 1 hand rail step to sequence Balance Sitting Static: Normal Sitting Dynamic: Normal Standing Static: Normal Standing Dynamic: Normal Assessment/Needs 82 y.o. male, donned his shoes independently and performed gross motor skills without difficulty. From a PT standpoint, patient would benefit from outpatient pulmonary/cardiac rehab to increase his activity level at home. No skilled inpatient PT indicated at this time. Rehab Potential: Fair PT Plan Treatment/Plan Treatment Plan: Discontinue PT, goals met Treatment Plan: Other Treatment Duration: Nov 15, 2017 Frequency: 1 time per week Estimated Hrs Per Day: .5 hour per day Patient and/or Family Agrees t: Yes Discharge Recommendations Therapy D/C Recommendations: Home w/ Family Support, Other, See Comments ( outpatient pulmonary/cardiac rehab) Time/GCodes Time In: 931 Time Out: 953 Total Billed Treatment Time: 22 Total Billed Treatment 1 visit EVModC 22 min G Codes Necessary: Yes PT/OT Therapy GCodes Therapy Functional Limitation: Physical Therapy Test(s)/Tool used to determine: LEFS Functional Limitation-Current Charge Code: MOBCUR Modifier: CH Functional Limitation-Goal Charge Code: MOBGOAL Modifier: CH Functional Limitation-D/C Charge Codes: MOBDC Modifier: LIZZETTE HOOD PT Nov 15, 2017 10:09
--- NOTE | 2017-11-15 10:29 | Cardiology Progress Note ---
Cardiology SOAP Progress Note Subjective: No cardiac complaints Objective: I&O/Vital Signs 11/15/17 11/15/17 11/15/17 11/15/17 06:25 07:00 07:25 08:00 Temp 97.1 Pulse 87 92 Resp 18 22 B/P (MAP) 158/84 (108) Pulse Ox 94 92 O2 Delivery Nasal Cannula Nasal Cannula O2 Flow Rate 5.00 5.00 11/15/17 11/15/17 11/15/17 11/15/17 08:00 10:21 12:00 14:36 Temp 97.4 Pulse 86 Resp 20 B/P (MAP) 117/60 (79) Pulse Ox 95 92 O2 Delivery Nasal Cannula Nasal Cannula Nasal Cannula O2 Flow Rate 5.00 5.00 5.00 11/15/17 00:00 Intake Total 1380 ml Balance 1380 ml Weight (Pounds): 240 Weight (Ounces): 1.0 Weight (Calculated Kilograms): [id number] Constitutional: AAO x 3, well-developed, well-nourished Respiratory: No accessory muscle use, No respiratory distress; other ( prolonged exp phase; diminished throughout) Cardiovascular: regular rate-rhythm; No JVD; S1 and S2, systolic murmur Gastrointestional: No tender; soft, round, audible bowel sounds Extremities: no lower extremity edema bilateral Neurologic/Psychiatric: grossly intact, power is 5/5 both on sides Skin: No rash, No ulcerations Results/Procedures: Labs Laboratory Tests 11/15/17 05:54: White Blood Count 7.8, Red Blood Count 4.78, Hemoglobin 13.8, Hematocrit 42, Mean Corpuscular Volume 87, Mean Corpuscular Hemoglobin 29, Mean Corpuscular Hemoglobin Concent 33, Red Cell Distribution Width 15.7H, Platelet Count 149, Mean Platelet Volume 9.5, Sodium Level 144, Potassium Level 3.7, Chloride Level 107, Carbon Dioxide Level 29, Anion Gap 8, Blood Urea Nitrogen 15, Creatinine 1.06, Estimat Glomerular Filtration Rate > 60, BUN/Creatinine Ratio 14, Glucose Level 98, Calcium Level 8.7 A/P: Assessment/Dx: Chest pain of undetermined etiology; does not appear to be of coronary origin ( coronary and graft status stable: see below) CAD. Card cath of 11/13/17 shows prox occlusion of LAD and RCA and 50% midvessel stenosis of LCX. SVG to a diag and SVG to distal RCA are patent. There is apical akinesis to dyskinesis and LVEF is 40%. LVEDP is elevated at 22 mmHg. This study does not seem changed compared to a card cath at [facility] by Dr King in Feb 2017 CAD - h/o CABG x 3 [address] [place] [address] Salazar at [facility] in [place], [place] Renal insuff, probably CKD 3, followed by the Med Sv[facility] May 2000 underwent left internal mammary artery revision d/t kinking. Chest wall hernia of the lung at the site of a previous quintero hole operation for which he was symptomatic and a Marlex mesh was sutured and anchored from the rib wall and right below the defect by Dr. Browning Reports h/o AAA repair with stenting [place] [address] Browning H/O ICM - most recent echo at [facility] August 2017 showed mild MR, TR and pulmonic. Apical aneurysm with thrombus. LVEF prob at lower limits of normal per Dr. Mccollum Reports h/o a-fib in the past for which he reports he was on warfarin tx in the past, but reports it was stopped for reasons unknown. He follow with Dr Mccollum on that HTN HLP - statin tx Hypothyroidism - replacement tx GERD COPD - following with Dr. Harris of pulmonary services JEFF - intolerant to CPAP tx Oxygen dependent d/t hypoxemia - followed by Dr. 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 Statin therapy for hyperlipidemia, Hypertension: Continue same therapy. Thank you for your consultation. Please call me if you have any questions. Richard Burris MD, FACP, FACC, FSCAI, FHRS, CCDS Interventional Cardiology Cardiac Electrophysiology Vascular Medicine and Endovascular Interventions Clinical Quality Measures AMI/AHF: ASA po Prior to arrival: Patricia Calloway MD Nov 15, 2017 10:29
[2017-11-15] MEDS ORDERED: PRD20T PO (11:47)
[2017-11-15] MEDS ORDERED: CARB1TAB17 PO (11:47)
[2017-11-15 12:00] VITALS: BP 117/60
--- NOTE | 2017-11-15 12:06 | Discharge Summary-Hospitalist ---
Diagnosis/Chief Complaint Date of Admission Nov 15, 2017 at 09:30 Date of Discharge 11/15/17 Discharge Date: Nov 15, 2017 Discharge Time: 13:00 Admission Diagnosis Chest pain Discharge Diagnosis Chest pain with stable angina Exacerbation of COPD Parkinson syndrome Increased hypoxia Congestive heart failure secondary to ischemic cardiomyopathy ejection fraction 40 percent Obesity Emphysema Anxiety and depression Deconditioning Coronary artery disease Discharge Summary Procedures/Consulations Heart catheter Bronchoscopy Dr. Cherry cardiology Dr. Harris pulmonology CT chest pulmonary angiogram Discharge Physical Exam Allergies: Coded Allergies: No Known Drug Allergies (Unverified , 10/23/17) Vitals & I&Os Vital Signs Date Time Temp Pulse Resp B/P (MAP) Pulse Ox O2 Delivery O2 Flow Rate FiO2 11/15/17 10:21 95 Nasal Cannula 5.00 11/15/17 08:00 97.1 92 22 158/84 (108) General Appearance: Alert, Oriented X3, Cooperative Respiratory: Other (Race expiratory wheeze) Cardiovascular: Regular Rate, Normal S1, Normal S2, Other (2/6 systolic murmur) Abdominal: Normal Bowel Sounds, Soft, No Tenderness Extremities: Other (Trace pedal edema) Neuro: Other (Increased weakness in transfer ambulation and loss of balance) Psych/Mental Status: Mental Status NL, Other (Somewhat depressed affect) Hospital Course The patient was admitted with complaints of chest discomfort after having been seen for initial consultation our pulmonologists. Cardiac catheter showed coronary disease with patent bypasses. Dr. Cherry felt that this was not the etiology of his chest discomfort. His chest discomfort was relieved with his breathing treatments. A d-dimer was obtained which was elevated and a CT pulmonary angiogram was obtained that showed no evidence of pulmonary emboli. Dr. Harris saw the patient in consultation, performed bronchoscopy that was unrevealing except for copious mucus. In addition it was noted that the patient has a tremor and paucity of movement. Carbidopa levodopa was initiated with great improvement in the patient's ability to move. Because of his increased oxygen demands he was placed on prednisone and it was recommended he go to rehabilitation for strengthening. Family would like to return home with outpatient PT and rehabilitation in the [place]. The patient feels much stronger at this time and feels like he can move better and that his balance is better with the initiation of the carbidopa levodopa. His Ativan was held because of the patient's increased somnolence and lack of initiation. It was recommended that he change back to BuSpar as the Ativan may be over sedating. In addition the patient was placed on Carafate with some improvement in his chest discomfort and GI symptoms. He requests following up with Dr. Gonzáles in [place]. A beta arun was not utilized because of his reactive airway disease. An AMERICO inhibitor was not utilized because of his renal insufficiency. Labs (last 24 hrs) Laboratory Tests 11/14/17 12:25: D-Dimer 2.66H, Total Creatine Kinase 76, Thyroid Stimulating Hormone (TSH) 1.49 11/14/17 12:32: Blood Gas Puncture Site r rad, Blood Gas Patient Temperature 98.6, Arterial Blood pH 7.39, Arterial Blood Partial Pressure CO2 48H, Arterial Blood Partial Pressure O2 72L, Arterial Blood HCO3 28H, Arterial Blood Total CO2 29.4, Arterial Blood Oxygen Saturation 95, Arterial Blood Base Excess 3.3H, Carlton Test YES-POS, Blood Gas Ventilator Setting NO, Blood Gas Inspired Oxygen 5 11/15/17 05:54: White Blood Count 7.8, Red Blood Count 4.78, Hemoglobin 13.8, Hematocrit 42, Mean Corpuscular Volume 87, Mean Corpuscular Hemoglobin 29, Mean Corpuscular Hemoglobin Concent 33, Red Cell Distribution Width 15.7H, Platelet Count 149, Mean Platelet Volume 9.5, Sodium Level 144, Potassium Level 3.7, Chloride Level 107, Carbon Dioxide Level 29, Anion Gap 8, Blood Urea Nitrogen 15, Creatinine 1.06, Estimat Glomerular Filtration Rate > 60, BUN/Creatinine Ratio 14, Glucose Level 98, Calcium Level 8.7 Patient resulted labs reviewed. Pending Labs Laboratory Tests 11/15/17 05:54: White Blood Count 7.8, Red Blood Count 4.78, Hemoglobin 13.8, Hematocrit 42, Mean Corpuscular Volume 87, Mean Corpuscular Hemoglobin 29, Mean Corpuscular Hemoglobin Concent 33, Red Cell Distribution Width 15.7, Platelet Count 149, Mean Platelet Volume 9.5, Sodium Level 144, Potassium Level 3.7, Chloride Level 107, Carbon Dioxide Level 29, Anion Gap 8, Blood Urea Nitrogen 15, Creatinine 1.06, Estimat Glomerular Filtration Rate > 60, BUN/Creatinine Ratio 14, Glucose Level 98, Calcium Level 8.7 Imaging: Reviewed Imaging Films, Reviewed Imaging Report Discussion & Recommendations Discharge Planning: >30 minutes discharge planning Discharge Home Medications: Active Scripts Active Prednisone 20 Mg Tab 20 Mg PO DAILY Take 3 tabs(60mg)daily, decrease by 1/2 tab(10mg)daily. Carbidopa-Levodopa 10-100 Tab (Carbidopa/Levodopa) 1 Each Tablet 1 Ea PO TIDWM 30 Days Sucralfate 1 Gm Tablet 1 Gm PO ACHS 14 Days Reported Furosemide 20 Mg Tablet 40 Mg PO DAILY TAKES 2 (20MG) TABLETS Incruse Ellipta (Umeclidinium [place]) 62.5 Mcg Blst.w.dev 1 Puff IH DAILY Ventolin Hfa (Albuterol Sulfate) 1 Puff Puff 2 Puff IH QID PRN 1 PUFF = 90 MCG Potassium Chloride 20 Meq Tablet.er 20 Meq PO 1200 Potassium Chloride 20 Meq Tablet.er 40 Meq PO DAILY TAKES 2 (20MEQ) TABLETS Isosorbide Mononitrate ER (Isosorbide Mononitrate) 60 Mg Tab 60 Mg PO DAILY Atorvastatin Calcium 40 Mg Tablet 40 Mg PO HS Nitroglycerin 0.4 Mg Tab.subl 0.4 Mg SL UD PRN Allopurinol 300 Mg Tablet 300 Mg PO DAILY Fish Oil 1,000 mg Capsule ([place] 3 Polyunsat Fatty Acids) 1,000 Mg Cap 2,000 Mg PO DAILY TAKES 2 (1000MG) CAPSULES Daily Multiple Vitamin (Multivitamin) 1 Each Tablet 1 Tab PO DAILY Plavix (Clopidogrel Bisulfate) 75 Mg Tablet 75 Mg PO DAILY Celexa (Citalopram Hydrobromide) 40 Mg Tablet 40 Mg PO DAILY Levothyroxine Sodium 100 Mcg Tablet 100 Mcg PO DAILY Protonix (Pantoprazole Sodium) 40 Mg Tablet.dr 40 Mg PO DAILY Condition at discharge Stable Instructions to patient/family Please see electronic discharge instructions given to patient. Clinical Quality Measures AMI/AHF: ASA po Prior to arrival: No DVT/VTE Risk/Contraindication: Risk Factor Score Per Nursin RFS Level Per Nursing on Admit: 4+=Very High Copy Copies To 1: RASTA Johnson MD Nov 15, 2017 12:06
== END 2017-11-15 14:20 | disposition home or self-care (01) | DRG 982 ==
LOC: EDUNIT# 11:16 → ER 11:18 → 4TH 13:15 → UNDOADMOB 13:15 → CATH 14:24 → 4TH 14:24 → CATH 11-15 09:29 → OBSVTOIN 11-15 09:30 → 4TH 11-15 09:30 → INTOOBSV 11-15 09:30 → EDPENDDISDT 11-15 13:00 → CATH 11-15 14:20 → 4TH 11-15 14:20 → UNDODISIN 11-15 14:20
PROVIDERS: ADMIT Internal Medicine; ATTEND Internal Medicine
PROC: 4A023N7 Measurement of Cardiac Sampling and Pressure, Left Heart, Percutaneous Approach (ICD-10-PCS; principal; 2017-11-13)
PROC: B2151ZZ Fluoroscopy of Left Heart using Low Osmolar Contrast (ICD-10-PCS; 2017-11-13)
PROC: B2111ZZ Fluoroscopy of Multiple Coronary Arteries using Low Osmolar Contrast (ICD-10-PCS; 2017-11-13)
PROC: B2131ZZ Fluoroscopy of Multiple Coronary Artery Bypass Grafts using Low Osmolar Contrast (ICD-10-PCS; 2017-11-13)
PROC: B2181ZZ Fluoroscopy of Left Internal Mammary Bypass Graft using Low Osmolar Contrast (ICD-10-PCS; 2017-11-13)
PROC: 0B9J8ZZ Drainage of Left Lower Lung Lobe, Via Natural or Artificial Opening Endoscopic (ICD-10-PCS; 2017-11-15)
PROC: 0BDJ8ZX Extraction of Left Lower Lung Lobe, Via Natural or Artificial Opening Endoscopic, Diagnostic (ICD-10-PCS; 2017-11-15)
DX: I25.118 Atherosclerotic heart disease of native coronary artery with other forms of angina pectoris (principal); J98.11 Atelectasis; T17.900A Unspecified foreign body in respiratory tract, part unspecified causing asphyxiation, initial encounter; J43.9 Emphysema, unspecified; G20 Parkinson's disease; I13.0 Hypertensive heart and chronic kidney disease with heart failure and stage 1 through stage 4 chronic kidney disease, or unspecified chronic kidney disease; I50.9 Heart failure, unspecified; N18.3 Chronic kidney disease, stage 3 (moderate); I25.5 Ischemic cardiomyopathy; I08.1 Rheumatic disorders of both mitral and tricuspid valves; I48.91 Unspecified atrial fibrillation; E78.5 Hyperlipidemia, unspecified; K21.9 Gastro-esophageal reflux disease without esophagitis; E03.9 Hypothyroidism, unspecified; G47.33 Obstructive sleep apnea (adult) (pediatric); F41.9 Anxiety disorder, unspecified; F32.9 Major depressive disorder, single episode, unspecified; K29.50 Unspecified chronic gastritis without bleeding; E66.9 Obesity, unspecified; Z68.36 Body mass index [BMI] 36.0-36.9, adult; Z95.1 Presence of aortocoronary bypass graft; Z95.5 Presence of coronary angioplasty implant and graft; Z99.81 Dependence on supplemental oxygen; Z79.02 Long term (current) use of antithrombotics/antiplatelets; Z79.84 Long term (current) use of oral hypoglycemic drugs; Z87.891 Personal history of nicotine dependence
CPT/HCPCS: 36415; 36600; 71045; 71046; 71250; 71275; 80048; 80053; 80061; 82550; 82805; 83735; 83874; 84443; 84484; 85025; 85027; 85379; 85610; 85652; 85730; 87070; 87101; 87106; 87116; 87205; 93005; 93041; 93459; 94640; 94664; 94760; 96374; G0378

== ENCOUNTER → 2018-01-03 | Outpatient (CLI) | payer MEDICARE, OTHER ==
[~2018-01-03] MED LIST: ALLO300T2 PO; ALPR0.5T7 PO; ATOR40TA70 PO; CARB1TAB17 PO; CITA40TA19 PO; CLOP75TA69 PO; FLUT1BLS3 IH; FURO20TA4 PO; FURO40TA4 PO; ISM60TCR PO; LEVO100T7 PO; MULT-35 PO; NITR0.4T39 SL; OMG1KC PO; PANT40TA2 PO; POTA-51 PO; PRD20T PO; RT-ALBUINH IH; RT-ALBUTEROL SULF 2.5 MG/3 ML PRE-MIX VIAL INH ONE; SUCR1TAB PO; UMEC62.5 IH
== END ==
LOC: RT 12:27
PROVIDERS: ATTEND Nurse Practitioner Family
DX: R91.1 Solitary pulmonary nodule (principal); J44.9 Chronic obstructive pulmonary disease, unspecified; Z87.891 Personal history of nicotine dependence
CPT/HCPCS: 94060; 94726; 94729

== ENCOUNTER 2018-05-06 13:57 | Emergency (ER) | payer MEDICARE, OTHER ==
[~2018-05-06] VITALS: Ht 172.7 cm; Wt 104.8 kg
[~2018-05-06 13:57] MED LIST changes: -RT-ALBUTEROL SULF 2.5 MG/3 ML PRE-MIX VIAL INH ONE
[2018-05-06] MEDS ORDERED: ASPIRIN 81 MG CHEW (CHILDREN'S ASA) PO ONE (14:15)
[2018-05-06] MEDS ORDERED: NITROGLYCERIN 0.4 MG SL TABS BTL 25'S SL PRN (14:15)
--- NOTE | 2018-05-06 14:16 | ED Chest Pain ---
General Stated Complaint: CP Source: patient Exam Limitations: no limitations History of Present Illness Date Seen by Provider: May 06, 2018 Time Seen by Provider: 13:56 Initial Comments The patient presents to ER by wheelchair from Dr. Harris's office where he presented for a scheduled appointment to workup his shortness of breath. He has a history of COPD as well as extensive history of coronary artery disease. He describes for the past couple months she's been having chest pain off-and-on worse with exertion in addition to his shortness of breath which has been worse lately. He's also noticed some pressure around his left eye, extra eye watering and nasal congestion and a cough but nonproductive. No fevers or chills. He states the chest pain is in his left chest rating up to his left shoulder and neck and accompanied with some nausea. This is reminiscent of the pain he had with his previous NC. He had a CABG in 1993 with a revision of a vessel and 1999. Most recent coronary catheterization was in January 2018 in [place] where his aviation technician aircraft and cardiovascular surgeon reside. At that time they put a new stent in him. He says he used nitroglycerin 3 times yesterday and it did help his pain but not much for his shortness of breath. He uses daily aspirin and Plavix. He has not taken any extra aspirin or nitroglycerin today. He rates the pain as moderate. He quit smoking in the . Allergies and Home Medications Allergies Coded Allergies: No Known Drug Allergies (Unverified , 10/23/17) Home Medications Albuterol Sulfate 1 Puff Puff, 2 PUFF IH QID PRN for SHORTNESS OF BREATH, ( Reported) 1 PUFF = 90 MCG Allopurinol 300 Mg Tablet, 300 MG PO DAILY, (Reported) Atorvastatin Calcium 40 Mg Tablet, 40 MG PO HS, (Reported) Carbidopa/Levodopa 1 Each Tablet, 1 EA PO TIDWM Prescribed by: RASTA ELIZABETH on 11/15/17 1147 Citalopram Hydrobromide 40 Mg Tablet, 40 MG PO DAILY, (Reported) Clopidogrel Bisulfate 75 Mg Tablet, 75 MG PO DAILY, (Reported) Furosemide 20 Mg Tablet, 40 MG PO DAILY, (Reported) TAKES 2 (20MG) TABLETS Isosorbide Mononitrate 60 Mg Tab, 60 MG PO DAILY, (Reported) Levothyroxine Sodium 100 Mcg Tablet, 100 MCG PO DAILY, (Reported) Multivitamin 1 Each Tablet, 1 TAB PO DAILY, (Reported) Nitroglycerin 0.4 Mg Tab.subl, 0.4 MG SL UD PRN for CHEST PAIN, (Reported) [place] 3 Polyunsat Fatty Acids 1,000 Mg Cap, 2,000 MG PO DAILY, (Reported) TAKES 2 (1000MG) CAPSULES Pantoprazole Sodium 40 Mg Tablet.dr, 40 MG PO DAILY, (Reported) Potassium Chloride 20 Meq Tablet.er, 40 MEQ PO DAILY, (Reported) TAKES 2 (20MEQ) TABLETS Potassium Chloride 20 Meq Tablet.er, 20 MEQ PO 1200, (Reported) Prednisone 20 Mg Tab, 20 MG PO DAILY Take 3 tabs(60mg)daily, decrease by 1/2 tab(10mg)daily. Prescribed by: RASTA ELIZABETH on 11/15/17 1147 Sucralfate 1 Gm Tablet, 1 GM PO ACHS Prescribed by: RASTA ELIZABETH on 11/14/17 1108 Umeclidinium [place] 62.5 Mcg Blst.w.dev, 1 PUFF IH DAILY, (Reported) Patient Home Medication List Home Medication List Reviewed: Yes Review of Systems Review of Systems Constitutional: No chills, No diaphoresis EENTM: No Eye Pain, No Ear Pain Respiratory: Cough (nonproductive); Denies Orthopnea; Shortness of Air, SOA With Exertion, SOA at Rest; Denies Wheezing Cardiovascular: Chest Pain; Denies Edema, Denies Syncope Gastrointestinal: Denies Abdomen Distended, Denies Abdominal Pain Genitourinary: Denies Burning, Denies Discharge Musculoskeletal: No back pain, No joint pain Skin: No pruritus, No rash Psychiatric/Neurological: Denies Headache, Denies Numbness Past Gneavxx-Mihdkh-Ypkhao Hx Patient Social History Alcohol Use: Denies Use Recreational Drug Use: No Smoking Status: Former Smoker Type Used: Cigarettes Former Smoker, Quit: Nov 12, 1980 Immunizations Up To Date Date of Pneumonia Vaccine: Nov 13, 2015 Seasonal Allergies Seasonal Allergies: No Past Medical History Surgeries: Yes Appendectomy, Cardiac, CABG, Gallbladder, Vascular Surgery Respiratory: Yes Asthma, Sleep Apnea, COPD Currently Using CPAP: No Cardiac: Yes (CABG, AAA, STENTS, CATH, GRAFT REPAIR) Atrial Fibrillation, High Cholesterol, Hypertension Neurological: No Genitourinary: No Gastrointestinal: Yes (DIVERTICULITIS) Chronic Diarrhea, Irritable Bowel Musculoskeletal: Yes Gout Endocrine: Yes Hypothyroidsim Cancer: Yes (MELONOMA) Psychosocial: Yes Anxiety Integumentary: No Family Medical History No Pertinent Family Hx Physical Exam Vital Signs Vital Signs - First Documented 05/06/18 14:14 Pulse Ox 95 O2 Delivery Nasal Cannula O2 Flow Rate 4.00 Capillary Refill : Height, Weight, BMI Height: 5'8.00" Weight: 240lbs. 1.0oz. 108.288346ha; 36.5 BMI Method:Stated General Appearance: WD/WN, Anxious, Mild Distress HEENT: PERRL/EOMI, Pharynx Normal, Moist Mucous Membranes Neck: Full Range of Motion, Normal Inspection, Supple Respiratory: No Chest Non Tender; Lungs Clear, Normal Breath Sounds, No Accessory Muscle Use, No Respiratory Distress, Other (palpation of the left chest wall re-creates his pain symptoms) Cardiovascular: Regular Rate, Rhythm, Normal Peripheral Pulses Gastrointestinal: Normal Bowel Sounds, Non Tender, Soft Extremity: Normal Capillary Refill, Normal Inspection, Non Tender, No Calf Tenderness, No Pedal Edema Neurologic/Psychiatric: Alert, Oriented x3 Skin: Normal Color, Warm/Dry Progress/Results/Core Measures Results/Orders Lab Results Laboratory Tests Test 05/06/18 14:14 05/06/18 14:34 05/06/18 16:20 Range/Units White Blood Count 8.4 4.3-11.0 10^3/uL Red Blood Count 5.17 4.35-5.85 10^6/uL Hemoglobin 14.9 13.3-17.7 G/DL Hematocrit 45 40-54 % Mean Corpuscular Volume 88 80-99 FL Mean Corpuscular Hemoglobin 29 25-34 PG Mean Corpuscular Hemoglobin Concent 33 32-36 G/DL Red Cell Distribution Width 15.1 H 10.0-14.5 % Platelet Count 197 130-400 10^3/uL Mean Platelet Volume 9.3 7.4-10.4 FL Neutrophils (%) (Auto) 64 42-75 % Lymphocytes (%) (Auto) 25 12-44 % Monocytes (%) (Auto) 9 0-12 % Eosinophils (%) (Auto) 2 0-10 % Basophils (%) (Auto) 0 0-10 % Neutrophils # (Auto) 5.4 1.8-7.8 X 10^3 Lymphocytes # (Auto) 2.1 1.0-4.0 X 10^3 Monocytes # (Auto) 0.7 0.0-1.0 X 10^3 Eosinophils # (Auto) 0.2 0.0-0.3 10^3/uL Basophils # (Auto) 0.0 0.0-0.1 10^3/uL Prothrombin Time 14.3 12.2-14.7 SEC INR Comment 1.1 0.8-1.4 Activated Partial Thromboplast Time 31 24-35 SEC Sodium Level 142 135-145 MMOL/L Potassium Level 4.0 3.6-5.0 MMOL/L Chloride Level 109 H 98-107 MMOL/L Carbon Dioxide Level 25 21-32 MMOL/L Anion Gap 8 5-14 MMOL/L Blood Urea Nitrogen 11 7-18 MG/DL Creatinine 1.09 0.60-1.30 MG/DL Estimat Glomerular Filtration Rate > 60 BUN/Creatinine Ratio 10 Glucose Level 96 70-105 MG/DL Calcium Level 9.2 8.5-10.1 MG/DL Corrected Calcium 9.2 8.5-10.1 MG/DL Magnesium Level 2.0 1.8-2.4 MG/DL Total Bilirubin 1.0 0.1-1.0 MG/DL Aspartate Amino Transf (AST/SGOT) 19 5-34 U/L Alanine Aminotransferase (ALT/SGPT) 17 0-55 U/L Alkaline Phosphatase 69 40-136 U/L Myoglobin 30.7 10.0-92.0 NG/ML Troponin I < 0.028 < 0.028 <0.028 NG/ML B-Type Natriuretic Peptide 61.6 <100.0 PG/ML Total Protein 6.9 6.4-8.2 GM/DL Albumin 4.0 3.2-4.5 GM/DL Blood Gas Puncture Site R BRACH Blood Gas Patient Temperature 97.2 Arterial Blood pH 7.42 7.37-7.43 Arterial Blood Partial Pressure CO2 38 35-45 MMHG Arterial Blood Partial Pressure O2 73 L 79-93 MMHG Arterial Blood HCO3 24 23-27 MMOL/L Arterial Blood Total CO2 25.6 21.0-31.0 MMOL/L Arterial Blood Oxygen Saturation 97 94-100 % Arterial Blood Base Excess 0.2 -2.5-2.5 MMOL/L Carlton Test YES-POS Blood Gas Ventilator Setting NO Blood Gas Inspired Oxygen 4 My Orders Orders - TILA,ZORA J Cbc With Automated Diff (05/06/18 14:11) Magnesium (05/06/18 14:11) Chest 1 View, Ap/Pa Only (05/06/18 14:11) Ekg Tracing (05/06/18 14:11) Cardiac Profile 1 (05/06/18 14:11) Comprehensive Metabolic Panel (05/06/18 14:11) Myoglobin Serum (05/06/18 14:11) Protime With Inr (05/06/18 14:11) Partial Thromboplastin Time (05/06/18 14:11) O2 (05/06/18 14:11) Monitor-Rhythm Ecg Trace Only (05/06/18 14:11) Lipid Panel (05/07/18 06:00) Aspirin Chewable Tablet (Baby Aspirin Ch (05/06/18 14:15) Nitroglycerin 0.4 Mg Btl 25's (Nitrostat (05/06/18 14:15) Saline Lock/Iv-Start (05/06/18 14:11) BNP (05/06/18 14:11) Arterial Blood Gas (05/06/18 14:34) Arterial Blood Draw (05/06/18 ) Troponin I (05/06/18 16:30) Ekg Tracing (05/06/18 15:14) Lidocaine 2% Viscous 15 Ml (Xylocaine Vi (05/06/18 15:30) Famotidine Tablet (Pepcid Tablet) (05/06/18 15:21) Antacid Suspension (Mylanta Suspension (05/06/18 15:30) Medications Given in ED Current Medications Medications Dose Ordered Sig/Barron Route Start Time Stop Time Status Last Admin Dose Admin Al Hydrox/Mg Hydrox/Simethicone 30 ml ONCE ONCE PO 05/06/18 15:30 05/06/18 15:31 DC 05/06/18 15:39 30 ML Aspirin 324 mg ONCE ONCE PO 05/06/18 14:15 05/06/18 14:16 DC 05/06/18 14:43 324 MG Lidocaine HCl 15 ml ONCE ONCE PO 05/06/18 15:30 05/06/18 15:31 DC 05/06/18 15:39 15 ML Nitroglycerin 0.4 mg UD PRN SL 05/06/18 14:15 05/06/18 14:43 0.4 MG Vital Signs/I&O 05/06/18 05/06/18 05/06/18 14:14 14:47 14:47 Temp 98.2 Pulse 71 Resp 20 B/P (MAP) 139/98 (112) Pulse Ox 95 95 O2 Delivery Nasal Cannula Nasal Cannula Nasal Cannula O2 Flow Rate 4.00 4.00 4.0 Progress Progress Note #1: Time: 14:25 Progress Note Well score 0 points for PE. He is having no hemoptysis. He is on his baseline of 4 L of oxygen and saturating at 98%. No recent surgeries. He said he had his gallbladder out a couple years ago. Certainly this could be angina as it seems to have in the past responded to nitroglycerin we'll start nitroglycerin 324 mg aspirin and some labs to follow up this EKG to see if there is any unstable features if it does not respond to nitroglycerin. We'll obtain an ABG in addition to her chest x-ray for his shortness of breath and see if his COPD is exacerbating his chest pain perhaps. The chest wall reproducibility portion of his pain decreases the likelihood of his pain all being from angina. ED ACS gives him 21 points and does not recommend an outpatient evaluation only. Progress Note #2: Time: 15:11 Progress Note Plan repeat EKG and delta troponin at 1630 which is more than 2 hours after the initial troponin. After 2 doses of nitroglycerin the patient states his pain is now 1 out of 10 but he still having some epigastric discomfort. He denies a history of GERD but we will try a GI cocktail next. Initial ECG Impression Date: May 06, 2018 Initial ECG Impression Time: 14:02 Initial ECG Rate: 74 Initial ECG Rhythm: Normal Sinus Initial ECG Intervals: Normal Initial ECG Impression: Nonspecific Changes Initial ECG Comparisson: Unchanged Comment No ST-T segment elevation or depression. Some respiratory artifact in the lateral leads. EKG : EKG Time: 16:22 Rate: 69 Rhythm: Normal Sinus Intervals: RI (220) ECG Comparisson: Changed ECG Impression: Nonspecific Changes, 1st Degree AV Block Comment RI intervals 216 last time was [address] changes. Diagnostic Imaging Diagonstic Imaging: Xray Plain Films/CT/US/NM/MRI: chest (1v) Comments [facility] [place], [place] NAME: MAL ALFONSO [facility] REC#: [id number] PT STATUS: REG ER : 1937 PHYSICIAN: ZORA ADORNO MD ADMIT DATE: 05/06/18/ER Draft Date of Exam:05/06/18 CHEST 1 VIEW, AP/PA ONLY INDICATION: Chest pain. COMPARISON: CT dated 01/03/2018. FINDINGS: Single frontal radiographic view of the chest was obtained and demonstrates persistent asymmetric elevation of left hemidiaphragm with mild left basilar atelectasis. Otherwise, lungs appear to be clear. There is no large effusion or pneumothorax on either side. Cardiac silhouette is mildly prominent, pulmonary vasculature is within normal limits. Sternotomy wires are noted. Bony structures show no gross acute abnormalities. IMPRESSION: 1. Persistent asymmetric elevation of the left hemidiaphragm with associated left basilar atelectasis. 2. Mild cardiomegaly, but no evidence of overt failure. Dictated on workstation # [id number] Dict: 05/06/18 1456 Trans: 05/06/18 1500 [facility] [id number] Interpreted by: VADIM STEELE MD Electronically signed by: Reviewed: Reviewed by Me Consults #1: Consulting Physician: Patricia BURRIS MD Consults Notes Discussed the case lab imaging findings EKG and the reproducibility of the chest pain by pressing on the left upper chest wall with Dr. Burris. He agrees this does not sound very coronary in origin since the BNP is 60. He would recommend a 2-3 hour delta troponin rule out and if that still negative he could follow up outpatient with his own aviation technician aircraft. Consults #2: Consulting Physician: DOREEN HARRIS DO Consults Notes Discussed case lab imaging findings and ABG with Dr. Harris since he sent the patient over to the ER. He would like follow-up in 4-6 weeks outpatient. Departure Impression Primary Impression: Anterior chest wall pain Additional Impressions: COPD (chronic obstructive pulmonary disease) Qualified Codes: J44.9 - Chronic obstructive pulmonary disease, unspecified Coronary artery disease Qualified Codes: I25.10 - Atherosclerotic heart disease of [place] coronary artery without angina pectoris Disposition: HOME, SELF-CARE Condition: Stable Departure-Patient Inst. Decision time for Depature: 17:02 Referrals: KENA IVY DO (PCP) Primary Care Physician NO,LOCAL PHYSICIAN (Family) Primary Care Physician Patient Instructions: Chest Pain That Is Not Caused by the Heart (DC) Add. Discharge Instructions: Tomorrow call follow-up with your aviation technician aircraft in the next 1-2 weeks. Call and follow-up with Dr. Harris in 4-6 weeks in his clinic. ZORA ADORNO May 06, 2018 14:16
[2018-05-06 14:25] LABS: BASOPHILS % (AUTO) 0 % (0-10); EOSINOPHILS # (AUTO) 0.2 10^3/uL (0.0-0.3); EOSINOPHILS % (AUTO) 2 % (0-10); HEMATOCRIT 45 % (40-54); HEMOGLOBIN 14.9 G/DL (13.3-17.7); LYMPHOCYTES # (AUTO) 2.1 X 10^3 (1.0-4.0); LYMPHOCYTES % (AUTO) 25 % (12-44); MEAN CORPUSCULAR HEMOGLOBIN 29 PG (25-34); MEAN CORPUSCULAR HGB CONC 33 G/DL (32-36); MEAN CORPUSCULAR VOLUME 88 FL (80-99); MEAN PLATELET VOLUME 9.3 FL (7.4-10.4); MONOCYTES # (AUTO) 0.7 X 10^3 (0.0-1.0); MONOCYTES % (AUTO) 9 % (0-12); NEUTROPHILS # (AUTO) 5.4 X 10^3 (1.8-7.8); NEUTROPHILS % (AUTO) 64 % (42-75); PLATELET COUNT 197 10^3/uL (130-400); RED BLOOD COUNT 5.17 10^6/uL (4.35-5.85); RED CELL DISTRIBUTION WIDTH 15.1 % (10.0-14.5); WHITE BLOOD COUNT 8.4 10^3/uL (4.3-11.0)
[2018-05-06 14:41] LABS: INR 1.1 (0.8-1.4); PROTHROMBIN TIME PATIENT 14.3 SEC (12.2-14.7)
[2018-05-06 14:44] LABS: ABG BASE EXCESS 0.2 MMOL/L (-2.5-2.5); ABG OXYGEN SATURATION 97 % (94-100); ABG PCO2 38 MMHG (35-45); ABG PH 7.42 (7.37-7.43); ABG PO2 73 MMHG (79-93); ABG TCO2 25.6 MMOL/L (21.0-31.0)
[2018-05-06 14:45] LABS: ALLENS TEST YES-POS; INSPIRED O2 4; PATIENT TEMP 97.2; VENTILATOR NO
[2018-05-06 14:48] LABS: ALANINE AMINOTRANSFERASE 17 U/L (0-55); ALKALINE PHOSPHATASE 69 U/L (40-136); BUN/CREATININE RATIO 10; CALCIUM 9.2 MG/DL (8.5-10.1); CARBON DIOXIDE 25 MMOL/L (21-32); CHLORIDE 109 MMOL/L (98-107); CREATININE SERUM 1.09 MG/DL (0.60-1.30); GFR ESTIMATED > 60; GLUCOSE 96 MG/DL (70-105); SODIUM 142 MMOL/L (135-145); TOTAL PROTEIN 6.9 GM/DL (6.4-8.2)
[2018-05-06 14:55] LABS: MYOGLOBIN SERUM 30.7 NG/ML (10.0-92.0)
--- NOTE | 2018-05-06 15:01 | Diagnostic Imaging Report ---
INDICATION: Chest pain. COMPARISON: CT dated 01/03/2018. FINDINGS: Single frontal radiographic view of the chest was obtained and demonstrates persistent asymmetric elevation of left hemidiaphragm with mild left basilar atelectasis. Otherwise, lungs appear to be clear. There is no large effusion or pneumothorax on either side. Cardiac silhouette is mildly prominent, pulmonary vasculature is within normal limits. Sternotomy wires are noted. Bony structures show no gross acute abnormalities. IMPRESSION: 1. Persistent asymmetric elevation of the left hemidiaphragm with associated left basilar atelectasis. 2. Mild cardiomegaly, but no evidence of overt failure. Dictated by: Dictated on workstation # [id number]
[2018-05-06] MEDS ORDERED: FAMOTIDINE 20 MG (PEPCID) TABLET PO STA (15:21)
[2018-05-06] MEDS ORDERED: ANTACID SUSP 30 ML UDC (MYLANTA) PO ONE (15:30)
[2018-05-06] MEDS ORDERED: LIDOCAINE 2% VISCOUS 15 ML UDC PO ONE (15:30)
[2018-05-06 17:40] VITALS: BP 158/94
== END 2018-05-06 17:40 | disposition home or self-care (01) ==
LOC: EDUNIT# 13:57 → ER 13:58
DX: R07.89 Other chest pain (principal); J44.9 Chronic obstructive pulmonary disease, unspecified; I25.10 Atherosclerotic heart disease of native coronary artery without angina pectoris; G47.30 Sleep apnea, unspecified; I48.91 Unspecified atrial fibrillation; E78.00 Pure hypercholesterolemia, unspecified; I10 Essential (primary) hypertension; I25.2 Old myocardial infarction; M10.9 Gout, unspecified; E03.9 Hypothyroidism, unspecified; F41.9 Anxiety disorder, unspecified; Z85.820 Personal history of malignant melanoma of skin; Z79.82 Long term (current) use of aspirin; Z87.891 Personal history of nicotine dependence; Z95.5 Presence of coronary angioplasty implant and graft; Z87.19 Personal history of other diseases of the digestive system; Z95.1 Presence of aortocoronary bypass graft; Z79.51 Long term (current) use of inhaled steroids; Z79.52 Long term (current) use of systemic steroids; Z90.49 Acquired absence of other specified parts of digestive tract; Z79.02 Long term (current) use of antithrombotics/antiplatelets
CPT/HCPCS: 36415; 36600; 71045; 80053; 82805; 83735; 83874; 83880; 84484; 85025; 85610; 85730; 93005; 93041

== ENCOUNTER → 2018-10-27 | Outpatient (CLI) | payer MEDICARE, OTHER ==
--- NOTE | 2018-10-27 13:57 | Diagnostic Imaging Report ---
PROCEDURE: CT chest without contrast. TECHNIQUE: Multiple contiguous axial images were obtained through the chest without the use of intravenous contrast. Auto Exposure Controls were utilized during the CT exam to meet ALARA standards for radiation dose reduction. INDICATION: Pulmonary nodules. Comparison made with prior examination of 01/03/2018. FINDINGS: There is centrilobular emphysema. There are two small noncalcified pulmonary nodules in the posteromedial aspect of the right upper lobe. These are unchanged. There is scarring or atelectasis in the left lung base. There is no significant pleural or pericardial fluid. There is no pneumothorax. Heart size is normal. There is extensive coronary artery calcification. Thoracic aorta is normal in caliber. There is no pathologically enlarged adenopathy in the chest. There is moderate thoracic spondylosis. IMPRESSION: Two stable noncalcified nodules in the right upper lobe. Unchanged scarring or atelectasis in the left lung base. Extensive coronary artery calcification. No other acute abnormality in the chest. Dictated by: Dictated on workstation # [id number]
== END ==
LOC: RAD 11:20
PROVIDERS: ATTEND Nurse Practitioner Family
DX: I25.10 Atherosclerotic heart disease of native coronary artery without angina pectoris (principal); I50.9 Heart failure, unspecified; J44.9 Chronic obstructive pulmonary disease, unspecified; R91.8 Other nonspecific abnormal finding of lung field
CPT/HCPCS: 71250